=== PATIENT | female | born 1990 | race Caucasian/White ===

== ENCOUNTER 2022-08-19 19:22 | Emergency (ER) | payer MEDICAID ==
[~2022-08-19] VITALS: Ht 167.6 cm; Wt 63.6 kg
[2022-08-19 19:39] VITALS: BP 133/87
[2022-08-19] MEDS ORDERED: ONDA4TAB12 PO (20:17)
== END 2022-08-19 20:48 | disposition home or self-care (01) ==
LOC: ER 19:27
DX: A08.4 Viral intestinal infection, unspecified (principal); Z88.0 Allergy status to penicillin
CPT/HCPCS: 99283

== ENCOUNTER 2022-09-08 14:26 | Emergency (ER) | payer MEDICAID ==
[~2022-09-08] VITALS: Ht 167.6 cm; Wt 65.9 kg
[~2022-09-08 14:26] MED LIST: ONDA4TAB12 PO
[2022-09-08 14:49] VITALS: BP 131/93
--- NOTE | 2022-09-08 16:15 | NUR ---
Pt is not willing to have a full assessment completed.
[2022-09-08] MEDS ORDERED: PANT20TA18 PO (16:35)
[2022-09-08] MEDS ORDERED: mag hydrox/Alum hydrox/simeth 30ml oral suspension PO ONE (16:40)
[2022-09-08] MEDS ORDERED: pantoprazole 40mg Tablet.DR PO ONE (16:40)
== END 2022-09-08 16:53 | disposition home or self-care (01) ==
LOC: ER 14:26
DX: R10.30 Lower abdominal pain, unspecified (principal); N93.9 Abnormal uterine and vaginal bleeding, unspecified; Z88.0 Allergy status to penicillin; Z79.899 Other long term (current) drug therapy
CPT/HCPCS: 76856; 93976; 99284

== ENCOUNTER 2022-09-10 14:16 | Emergency (ER) | payer MEDICAID ==
[~2022-09-10] VITALS: Ht 167.6 cm; Wt 60.0 kg
[~2022-09-10 14:16] MED LIST changes: +PANT20TA18 PO
[2022-09-10 15:05] VITALS: BP 148/93
[2022-09-10 15:58] LABS: BASOPHILS # (AUTO) 0.1 X10'3 (0-0.2); BASOPHILS % (AUTO) 1.2 % (0-1); EOSINOPHILS # (AUTO) 0.1 X10'3 (0-0.9); EOSINOPHILS % (AUTO) 1.6 % (0-6); HEMATOCRIT 37.1 % (35.0-45.0); HEMOGLOBIN 12.3 g/dl (12.0-16.0); LYMPHOCYTES # (AUTO) 1.4 X10'3 (1.1-4.8); LYMPHOCYTES % (AUTO) 32.1 % (21-51); MEAN CORPUSCULAR HEMOGLOBIN 33.3 PG (27.0-31.0); MEAN CORPUSCULAR HGB CONC 33.2 g/dL (33.0-36.5); MEAN CORPUSCULAR VOLUME 100.5 FL (78-98); MONOCYTES # (AUTO) 0.5 X10'3 (0-0.9); MONOCYTES % (AUTO) 11.2 % (2-12); NEUTROPHILS # (AUTO) 2.4 X10'3 (1.8-7.7); NEUTROPHILS % (AUTO) 53.9 % (42-75); PLATELET COUNT 152 X10'3 (140-440); RED CELL DISTRIBUTION WIDTH 13.4 % (11.5-14.5); WHITE BLOOD COUNT 4.4 X10'3 (4.5-11.0)
[2022-09-10 16:16] LABS: ALANINE AMINOTRANSFERASE 90 U/L (12-78); ALKALINE PHOSPHATASE 104 IU/L (46-116); ANION GAP 15 (8-16); ASPARTATE AMINO TRANSFERASE 154 U/L (10-37); BILIRUBIN,TOTAL 0.6 MG/DL (0.1-1.0); BLOOD UREA NITROGEN 6 MG/DL (7-18); BUN/CREATININE RATIO 10.2 (10.0-20.0); CHLORIDE 102 MMOL/L (99-107); CREATININE 0.59 MG/DL (0.40-0.90); GLUCOSE 94 MG/DL (70-104); SODIUM 142 MMOL/L (135-145); TOTAL CARBON DIOXIDE 25.4 MMOL/L (24-32); eGFR > 90 ML/MIN
[2022-09-10 16:20] LABS: POTASSIUM 2.6 MMOL/L (3.5-5.1)
[2022-09-10] MEDS ORDERED: POTA-208 PO (16:30)
== END 2022-09-10 16:28 | disposition home or self-care (01) ==
LOC: ER 14:17
DX: R10.9 Unspecified abdominal pain (principal); E86.0 Dehydration; Z88.0 Allergy status to penicillin; Z79.899 Other long term (current) drug therapy
CPT/HCPCS: 36415; 80053; 85025; 99283

== ENCOUNTER 2022-11-25 19:02 | Emergency (ER) | payer MEDICAID ==
[~2022-11-25] VITALS: Ht 167.6 cm; Wt 63.6 kg
[~2022-11-25 19:02] MED LIST changes: +POTA-208 PO
[2022-11-25 19:07] VITALS: BP 154/112; PULSE 105; RESP 18; TEMP 98; O2SAT 97
[2022-11-25] MEDS ORDERED: HYDROcodone/acetaminophen 5mg/325mg tablet PO ONE (21:45)
[2022-11-25] MEDS ORDERED: HYDR-3965 PO (22:44)
[2022-11-25] MEDS ORDERED: ONDA4TAB12 PO (22:44)
== END 2022-11-25 22:54 | disposition home or self-care (01) ==
LOC: ER 19:03
DX: N80.9 Endometriosis, unspecified (principal); Z88.0 Allergy status to penicillin; Z79.899 Other long term (current) drug therapy
CPT/HCPCS: 76856; 93976; 99284

== ENCOUNTER 2022-11-27 18:05 | Emergency (ER) | payer MEDICAID ==
[~2022-11-27] VITALS: Ht 167.6 cm; Wt 62.8 kg
[~2022-11-27 18:05] MED LIST changes: +HYDR-3965 PO
[2022-11-27 20:02] VITALS: BP 139/100; PULSE 98; RESP 16; TEMP 98.4; O2SAT 93
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
[2022-11-27] MEDS ORDERED: CLIN-214 PO (20:19)
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
== END 2022-11-27 21:01 | disposition home or self-care (01) ==
LOC: ER 18:06
DX: S00.83XA Contusion of other part of head, initial encounter (principal); Y04.0XXA Assault by unarmed brawl or fight, initial encounter; Y93.89 Activity, other specified; Y92.89 Other specified places as the place of occurrence of the external cause; Y99.8 Other external cause status
CPT/HCPCS: 99283

== ENCOUNTER 2023-02-06 11:55 | Emergency (ER) | payer MEDICAID ==
[~2023-02-06] VITALS: Ht 167.6 cm; Wt 68.6 kg
[~2023-02-06 11:55] MED LIST changes: +CLIN-214 PO; -HYDR-3965 PO
[2023-02-06] MEDS ORDERED: LORazepam 1 MG tablet PO ONE (12:15)
[2023-02-06] MEDS ORDERED: MUPI22OI30 TOP (13:41)
[2023-02-06] MEDS ORDERED: CEPH500C2 PO (13:41)
[2023-02-06 13:53] VITALS: BP 131/86; PULSE 100; RESP 16; TEMP 98.1; O2SAT 96
== END 2023-02-06 13:56 | disposition home or self-care (01) ==
LOC: ER 11:56
DX: S80.211A Abrasion, right knee, initial encounter (principal); F41.9 Anxiety disorder, unspecified; Z88.0 Allergy status to penicillin; Z79.899 Other long term (current) drug therapy; W18.39XA Other fall on same level, initial encounter; Y93.89 Activity, other specified; Y92.89 Other specified places as the place of occurrence of the external cause; Y99.8 Other external cause status
CPT/HCPCS: 73564; 99283; 99284; A6258; A6449

== ENCOUNTER 2023-02-07 12:10 | Emergency (ER) | payer MEDICAID ==
[~2023-02-07] VITALS: Ht 167.6 cm; Wt 67.2 kg
[~2023-02-07 12:10] MED LIST changes: +CEPH500C2 PO; +MUPI22OI30 TOP
[2023-02-07] MEDS ORDERED: mupirocin 2% ointment 22GM TP STA (13:02)
[2023-02-07] MEDS ORDERED: HYDROcodone/acetaminophen 10/325mg tab PO ONE (14:10)
[2023-02-07 15:05] VITALS: BP 111/91; PULSE 96; RESP 19; TEMP 98.2; O2SAT 97
== END 2023-02-07 15:29 | disposition home or self-care (01) ==
LOC: ER 12:10
DX: S80.911D Unspecified superficial injury of right knee, subsequent encounter (principal); Z48.00 Encounter for change or removal of nonsurgical wound dressing; W19.XXXD Unspecified fall, subsequent encounter
CPT/HCPCS: 99284; A6258

== ENCOUNTER 2023-02-19 23:59 | Inpatient (IN) | payer MEDICAID ==
[~2023-02-19] VITALS: Ht 167.6 cm; Wt 73.6 kg
[~2023-02-19 23:59] MED LIST changes: -CEPH500C2 PO; -MUPI22OI30 TOP
[2023-02-20] VITALS (22 sets, daily range): BP systolic 70–106; BP diastolic 42–69; PULSE 122–140; RESP 13–32; O2SAT 87–100
[2023-02-20] MEDS ORDERED: normal saline 1000ML IV soln IV ONE (00:10)
[2023-02-20] MEDS ORDERED: LORazepam 2 mg/ml vial IV ONE (00:10)
[2023-02-20] MEDS ORDERED: thiamine 100mg/ml 2ml inj. IV ONE (00:10)
[2023-02-20 00:55] LABS: BASOPHILS % (AUTO) 0.3 % (0-1); EOSINOPHILS % (AUTO) 0 % (0-6); HEMATOCRIT 42.3 % (35.0-45.0); HEMOGLOBIN 13.4 g/dl (12.0-16.0); LYMPHOCYTES # (AUTO) 0.4 X10'3 (1.1-4.8); LYMPHOCYTES % (AUTO) 3.4 % (21-51); MEAN CORPUSCULAR HEMOGLOBIN 31.1 PG (27.0-31.0); MEAN CORPUSCULAR HGB CONC 31.8 g/dL (33.0-36.5); MEAN CORPUSCULAR VOLUME 97.7 FL (78-98); MEAN PLATELET VOLUME 8.5 FL (7.4-10.4); MONOCYTES # (AUTO) 1.4 X10'3 (0-0.9); MONOCYTES % (AUTO) 12.2 % (2-12); NEUTROPHILS # (AUTO) 9.5 X10'3 (1.8-7.7); NEUTROPHILS % (AUTO) 84.1 % (42-75); PLATELET COUNT 117 X10'3 (140-440); RED BLOOD COUNT 4.33 X10'6 (4.20-5.60); RED CELL DISTRIBUTION WIDTH 17.3 % (11.5-14.5); WHITE BLOOD COUNT 11.3 X10'3 (4.5-11.0)
[2023-02-20 01:15] LABS: ALANINE AMINOTRANSFERASE 168 U/L (12-78); ALBUMIN/GLOBULIN RATIO 1.1 (1.1-1.5); ALKALINE PHOSPHATASE 126 IU/L (46-116); ANION GAP 38 (8-16); ASPARTATE AMINO TRANSFERASE 252 U/L (10-37); BILIRUBIN,TOTAL 3.5 MG/DL (0.1-1.0); BLOOD UREA NITROGEN 7 MG/DL (7-18); CALCIUM 8.9 MG/DL (8.5-10.1); CHLORIDE 87 MMOL/L (99-107); CREATININE 3.46 MG/DL (0.40-0.90); ETHANOL < 10 MG/DL (<10); GLUCOSE 114 MG/DL (70-104); MAGNESIUM 1.9 MG/DL (1.5-2.4); SODIUM 134 MMOL/L (135-145); TOTAL PROTEIN 9.7 G/DL (6.4-8.2); eCRCL 22 ML/MIN; eGFR 15 ML/MIN
[2023-02-20 01:19] LABS: LIPASE > 375 U/L (16-77); POTASSIUM 3.2 MMOL/L (3.5-5.1)
[2023-02-20 01:25] LABS: TOTAL CARBON DIOXIDE 9.3 MMOL/L (24-32)
[2023-02-20] MEDS ORDERED: CefTRIAXone/D5W-Rocephin 1gm 50 ML IV STA (01:27)
[2023-02-20] MEDS ORDERED: normal saline 1000ML IV soln IVB ONE (01:35)
[2023-02-20] MEDS ORDERED: LIDOcaine 2% 10ml TOPICAL JELLY (Urojet) TP ONE (02:05)
[2023-02-20] MEDS ORDERED: LidoCAINE 2% Topical Jelly 11mL syringe TOP ONE (02:15)
[2023-02-20 02:25] LABS: URINE HCG NEGATIVE (NEG)
[2023-02-20 02:26] LABS: BILIRUBIN,URINE SMALL (Neg); CLARITY,URINE CLEAR (Clear); COLOR,URINE YELLOW (Yellow); GLUCOSE, URINE NEGATIVE (Neg); KETONES,URINE 40 mg/dl (Neg); LEUKOCYTE ESTERASE ,URINE NEGATIVE (Neg); NITRITES, URINE NEGATIVE (Neg); OCCULT BLOOD,URINE SMALL (Neg); PROTEIN,URINE 100 mg/dl (Neg); UROBILINOGEN,URINE 0.2 E.U/dL (0.2-1.0)
[2023-02-20 02:44] LABS: UA COLLECTION TYPE OTHER
[2023-02-20 02:45] LABS: HYALINE CASTS >30 /LPF (NEGATIVE); SQUAMOUS EPITHELIAL CELL,UR MODERATE /LPF (FEW)
[2023-02-20] MEDS ORDERED: haloperidol lactate 5mg/ml inj IM PRN (02:45)
[2023-02-20] MEDS ORDERED: LORazepam 2 mg/ml vial IV PRN (02:45)
[2023-02-20] MEDS ORDERED: ondansetron/PF 4mg/2ml inj IV PRN (02:45)
[2023-02-20] MEDS ORDERED: dextrose 50%-water 50ml dispensing syringe IV PRN ×3 (02:45→16:25)
[2023-02-20 02:46] LABS: BACTERIA,URINE 2+ /HPF (Neg); WBC,URINE 0-4 /HPF (0-4)
[2023-02-20 02:49] LABS: URINE AMPHETAMINE SCREEN NEGATIVE (Neg); URINE BARBITUATE SCREEN NEGATIVE (Neg); URINE BENZODIAZEPINES SCREEN POSITIVE (Neg); URINE CANNABINOID SCREEN NEGATIVE (Neg); URINE COCAINE SCREEN NEGATIVE (Neg); URINE METHADONE SCREEN NEGATIVE (Neg); URINE OPIATE SCREEN NEGATIVE (Neg); URINE PHENCYCLIDINE SCREEN NEGATIVE (Neg)
[2023-02-20] MEDS ORDERED: sodium bicarbonate 1meq/ml inj 150 ML in dextrose 5%-water 1,000 ML IV ONE (02:50)
[2023-02-20] MEDS ORDERED: ondansetron/PF 4mg/2ml inj IM ONE (03:00)
[2023-02-20] MEDS ORDERED: HYDROmorphone 1 mg/ml syringe IV ONE (03:05)
[2023-02-20] MEDS: HYDROmorphone 1 mg/ml syringe IV PRN ×4 (03:10→20:39)
[2023-02-20 07:52] LABS: ALBUMIN 3.7 G/DL (3.4-5.0); ANION GAP 25 (8-16); BLOOD UREA NITROGEN 9 MG/DL (7-18); BUN/CREATININE RATIO 2.8 (10.0-20.0); CALCIUM 7.3 MG/DL (8.5-10.1); CHLORIDE 93 MMOL/L (99-107); CREATININE 3.22 MG/DL (0.40-0.90); GLUCOSE 209 MG/DL (70-104); POTASSIUM 3.3 MMOL/L (3.5-5.1); SODIUM 135 MMOL/L (135-145); TOTAL CARBON DIOXIDE 16.9 MMOL/L (24-32); eCRCL 23 ML/MIN; eGFR 17 ML/MIN
[2023-02-20] MEDS: pantoprazole 40 MG vial IV SCH ×2 (07:58→20:27)
[2023-02-20] MEDS: heparin, porcine 5000 units/ml vial SQ SCH ×2 (07:59→20:28)
[2023-02-20] MEDS: thiamine 100mg/ml 2ml inj. IV SCH ×3 (07:59→20:43)
[2023-02-20] MEDS: folic acid 1mg/0.2ml inj IV SCH (08:15)
[2023-02-20] MEDS: ringers solution, lacted 1,000 ML IV SCH ×4 (09:15→20:39)
[2023-02-20] MEDS ORDERED: potassium Cl 20 mEq SR tablet PO PRN ×2 (10:35)
[2023-02-20] MEDS ORDERED: magnesium 2GM in 50ml NS 50 ML IV PRN (10:35)
[2023-02-20] MEDS ORDERED: potassium Cl 40MEQ/1/2NS 520ml 520 ML IV PRN (10:35)
[2023-02-20] MEDS ORDERED: Potassium Cl inj 20 MEQ in normal saline 250ml IV soln 250 ML IV ONE (12:00)
[2023-02-20] MEDS: ondansetron/PF 4mg/2ml inj IV PRN ×2 (12:04→18:25)
[2023-02-20 13:33] LABS: ABG BASE EXCESS -6.5 mmol/L (-2.0-2.0); ABG HCO3 18.1 mmol/L (22.0-26.0); ABG OXYGEN SATURATION 88.8 % (94-97); ABG PCO2 (T) 34.7 mmHg (32.0-45.0); ABG PO2 (T) 60.7 mmHg (75.0-100.0); ALLEN'S TEST POSITIVE; FHHb 11.2 % (0.0-5.0); FMetHb 0.3 % (0.0-1.5); FO2Hb 88.5 % (94-97); MODE ROOM AIR; PATIENT TEMPERATURE 38.1; TOTAL HEMOGLOBIN 11.3 G/dl (12.0-16.0)
[2023-02-20] MEDS: proCHLORperazine 10 MG/2 ml inj IV PRN (14:09)
[2023-02-20] MEDS ORDERED: ringers solution, lacted 1,000 ML IV ONE ×3 (15:00→19:00)
[2023-02-20] MEDS ORDERED: glucagon, human recombinant 1mg kit SUBCUT PRN (16:25)
[2023-02-20 20:15] LABS: ALANINE AMINOTRANSFERASE 112 U/L (12-78); ALBUMIN 2.5 G/DL (3.4-5.0); ALBUMIN/GLOBULIN RATIO 0.9 (1.1-1.5); ALKALINE PHOSPHATASE 51 IU/L (46-116); ANION GAP 16 (8-16); ASPARTATE AMINO TRANSFERASE 261 U/L (10-37); BILIRUBIN,TOTAL 2.6 MG/DL (0.1-1.0); BLOOD UREA NITROGEN 14 MG/DL (7-18); BUN/CREATININE RATIO 3.4 (10.0-20.0); CALCIUM 6.9 MG/DL (8.5-10.1); CHLORIDE 96 MMOL/L (99-107); CREATININE 4.12 MG/DL (0.40-0.90); GLUCOSE 165 MG/DL (70-104); SODIUM 134 MMOL/L (135-145); TOTAL CARBON DIOXIDE 21.8 MMOL/L (24-32); TOTAL PROTEIN 5.2 G/DL (6.4-8.2); eCRCL 18 ML/MIN; eGFR 12 ML/MIN
[2023-02-20 20:18] LABS: POTASSIUM 2.6 MMOL/L (3.5-5.1)
[2023-02-20 20:19] LABS: MAGNESIUM 0.5 MG/DL (1.5-2.4)
[2023-02-20] MEDS: magnesium 4gm in 100ml NS 100 ML IV PRN (20:22)
[2023-02-20 20:29] LABS: EOSINOPHILS % (AUTO) 0 % (0-6); HEMOGLOBIN 9.7 g/dl (12.0-16.0); LYMPHOCYTES # (AUTO) 0.6 X10'3 (1.1-4.8); LYMPHOCYTES % (AUTO) 10.1 % (21-51); MEAN CORPUSCULAR HGB CONC 33.6 g/dL (33.0-36.5); MONOCYTES # (AUTO) 0.6 X10'3 (0-0.9); NEUTROPHILS # (AUTO) 4.7 X10'3 (1.8-7.7)
[2023-02-20 20:30] LABS: BASOPHILS % (AUTO) 0.3 % (0-1); HEMATOCRIT 28.8 % (35.0-45.0); MEAN CORPUSCULAR HEMOGLOBIN 31.5 PG (27.0-31.0); MEAN CORPUSCULAR VOLUME 93.7 FL (78-98); MEAN PLATELET VOLUME 9.4 FL (7.4-10.4); MONOCYTES % (AUTO) 9.6 % (2-12); RED BLOOD COUNT 3.08 X10'6 (4.20-5.60); RED CELL DISTRIBUTION WIDTH 17.2 % (11.5-14.5); WHITE BLOOD COUNT 5.8 X10'3 (4.5-11.0)
[2023-02-20] MEDS: potassium Cl 40MEQ/270ML bag 270 ML IV PRN ×2 (20:33→22:31)
[2023-02-20] MEDS: NORepinephrine 8mg/ 250ml NS 250 ML IV SCH (20:37)
[2023-02-20 20:48] LABS: PLATELET COUNT 45 X10'3 (140-440)
[2023-02-20] MEDS: insulin Lispro (HumaLOG) vial - multi-dose SQ SCH (21:02)
[2023-02-20] MEDS: insulin glargine (Lantus) pen - multi-dose SQ SCH (21:05)
[2023-02-21] VITALS (24 sets, daily range): BP systolic 83–120; BP diastolic 50–77; PULSE 96–134; RESP 12–22; O2SAT 92–97
[2023-02-21] MEDS ORDERED: albumin (Human) 5% 250ml 500 ML IV ONE (00:31)
[2023-02-21] MEDS ORDERED: albumin (Human) 5% 250ml 250 ML IV ONE ×4 (00:35→04:30)
[2023-02-21] MEDS: hydrocortisone sod succ/PF 100mg/2ml inj. IV SCH ×3 (00:51→16:06)
[2023-02-21] MEDS: vasopressin inj. 40 UNIT in normal saline 50ml IV soln 38 ML IV SCH ×2 (01:22→08:26)
[2023-02-21 01:48] LABS: ALANINE AMINOTRANSFERASE 124 U/L (12-78); ALBUMIN/GLOBULIN RATIO 1.1 (1.1-1.5); ALKALINE PHOSPHATASE 55 IU/L (46-116); ANION GAP 14 (8-16); ASPARTATE AMINO TRANSFERASE 267 U/L (10-37); BILIRUBIN,TOTAL 3.1 MG/DL (0.1-1.0); BLOOD UREA NITROGEN 12 MG/DL (7-18); CALCIUM 7.4 MG/DL (8.5-10.1); CHLORIDE 98 MMOL/L (99-107); CREATININE 4.05 MG/DL (0.40-0.90); GLUCOSE 105 MG/DL (70-104); POTASSIUM 4.2 MMOL/L (3.5-5.1); SODIUM 131 MMOL/L (135-145); TOTAL CARBON DIOXIDE 18.6 MMOL/L (24-32); TOTAL PROTEIN 5.7 G/DL (6.4-8.2); eCRCL 19 ML/MIN; eGFR 13 ML/MIN
[2023-02-21] MEDS: HYDROmorphone 1 mg/ml syringe IV PRN ×4 (01:49→20:42)
[2023-02-21 01:50] LABS: APTT 43 SECONDS (22-32); PHOSPHORUS 0.2 MG/DL (2.3-4.5)
[2023-02-21 02:00] LABS: BASOPHILS % (AUTO) 0.1 % (0-1); EOSINOPHILS % (AUTO) 0 % (0-6); HEMATOCRIT 31.3 % (35.0-45.0); HEMOGLOBIN 10.3 g/dl (12.0-16.0); LYMPHOCYTES # (AUTO) 0.8 X10'3 (1.1-4.8); LYMPHOCYTES % (AUTO) 6.8 % (21-51); MEAN CORPUSCULAR HEMOGLOBIN 31.1 PG (27.0-31.0); MEAN CORPUSCULAR HGB CONC 32.9 g/dL (33.0-36.5); MEAN CORPUSCULAR VOLUME 94.5 FL (78-98); MEAN PLATELET VOLUME 9.6 FL (7.4-10.4); MONOCYTES # (AUTO) 1.2 X10'3 (0-0.9); MONOCYTES % (AUTO) 9.8 % (2-12); NEUTROPHILS # (AUTO) 9.9 X10'3 (1.8-7.7); NEUTROPHILS % (AUTO) 83.3 % (42-75); PLATELET COUNT 76 X10'3 (140-440); RED BLOOD COUNT 3.31 X10'6 (4.20-5.60); RED CELL DISTRIBUTION WIDTH 17.6 % (11.5-14.5); WHITE BLOOD COUNT 11.9 X10'3 (4.5-11.0)
[2023-02-21 02:03] LABS: MAGNESIUM 2.1 MG/DL (1.5-2.4)
[2023-02-21] MEDS: proCHLORperazine 10 MG/2 ml inj IV PRN (02:09)
[2023-02-21] MEDS ORDERED: sodium phosphate inj. 15 MMOL in dextrose 5%-water 250 ML IV PRN (02:10)
[2023-02-21] MEDS ORDERED: sodium phosphate inj. 30 MMOL in dextrose 5%-water 250 ML IV PRN (02:10)
[2023-02-21] MEDS: ringers solution, lacted 1,000 ML IV SCH ×3 (02:48→10:16)
[2023-02-21] MEDS ORDERED: albumin (human) 25% 100ml IV 100 ML in dextrose 5% water 500ml 400 ML IV ONE (03:15)
[2023-02-21 03:21] LABS: APTT 43 SECONDS (22-32)
[2023-02-21 03:38] LABS: ANISOCYTOSIS 1+; PLATELET ESTIMATE DECREASED; TOTAL CELLS COUNTED 100
[2023-02-21 03:41] LABS: LARGE PLATELETS FEW
[2023-02-21] MEDS: NORepinephrine 8mg/ 250ml NS 250 ML IV SCH ×3 (04:14→16:06)
[2023-02-21] MEDS: K and/or MAG REPLACEMENT MC SCH (08:00)
[2023-02-21] MEDS: thiamine 100mg/ml 2ml inj. IV SCH ×3 (08:25→20:47)
[2023-02-21] MEDS: pantoprazole 40 MG vial IV SCH ×2 (08:25→20:47)
[2023-02-21] MEDS: folic acid 1mg/0.2ml inj IV SCH (08:25)
[2023-02-21 09:37] LABS: BASOPHILS % (AUTO) 0.2 % (0-1); EOSINOPHILS % (AUTO) 0 % (0-6); HEMATOCRIT 29.5 % (35.0-45.0); HEMOGLOBIN 9.8 g/dl (12.0-16.0); LYMPHOCYTES # (AUTO) 0.5 X10'3 (1.1-4.8); LYMPHOCYTES % (AUTO) 4.8 % (21-51); MEAN CORPUSCULAR HEMOGLOBIN 31.4 PG (27.0-31.0); MEAN CORPUSCULAR HGB CONC 33.3 g/dL (33.0-36.5); MEAN CORPUSCULAR VOLUME 94.5 FL (78-98); MEAN PLATELET VOLUME 9.4 FL (7.4-10.4); MONOCYTES # (AUTO) 0.7 X10'3 (0-0.9); MONOCYTES % (AUTO) 6.6 % (2-12); NEUTROPHILS # (AUTO) 9.1 X10'3 (1.8-7.7); NEUTROPHILS % (AUTO) 88.4 % (42-75); PLATELET COUNT 71 X10'3 (140-440); RED BLOOD COUNT 3.12 X10'6 (4.20-5.60); RED CELL DISTRIBUTION WIDTH 18.2 % (11.5-14.5); WHITE BLOOD COUNT 10.4 X10'3 (4.5-11.0)
[2023-02-21 09:55] LABS: ALANINE AMINOTRANSFERASE 110 U/L (12-78); ALBUMIN 3.6 G/DL (3.4-5.0); ALBUMIN/GLOBULIN RATIO 1.5 (1.1-1.5); ALKALINE PHOSPHATASE 55 IU/L (46-116); ANION GAP 19 (8-16); ASPARTATE AMINO TRANSFERASE 223 U/L (10-37); BILIRUBIN,TOTAL 3.5 MG/DL (0.1-1.0); BLOOD UREA NITROGEN 12 MG/DL (7-18); BUN/CREATININE RATIO 3.3 (10.0-20.0); CHLORIDE 98 MMOL/L (99-107); CREATININE 3.68 MG/DL (0.40-0.90); GLUCOSE 130 MG/DL (70-104); MAGNESIUM 2.5 MG/DL (1.5-2.4); PHOSPHORUS 2.3 MG/DL (2.3-4.5); SODIUM 133 MMOL/L (135-145); eCRCL 20 ML/MIN; eGFR 14 ML/MIN
[2023-02-21 09:57] LABS: POTASSIUM 4.2 MMOL/L (3.5-5.1)
[2023-02-21 10:09] LABS: ANISOCYTOSIS 2+; PLATELET ESTIMATE DECREASED; TOTAL CELLS COUNTED 100
[2023-02-21 12:37] LABS: HEMOGLOBIN A1C 4.5 % (4.5-6.2)
[2023-02-21] MEDS: insulin Lispro (HumaLOG) vial - multi-dose SQ SCH ×2 (14:59→21:04)
[2023-02-21] MEDS ORDERED: NO HOME MEDS (17:46)
[2023-02-21] MEDS: insulin glargine (Lantus) pen - multi-dose SQ SCH (21:05)
[2023-02-22] VITALS (20 sets, daily range): BP systolic 98–130; BP diastolic 65–95; PULSE 100–113; RESP 11–17; TEMP 97.9–99.3; O2SAT 92–99
[2023-02-22] MEDS: hydrocortisone sod succ/PF 100mg/2ml inj. IV SCH (00:18)
[2023-02-22] MEDS: ondansetron/PF 4mg/2ml inj IV PRN ×2 (00:21→12:54)
[2023-02-22] MEDS ORDERED: LORazepam 1 MG tablet PO PRN (02:45)
[2023-02-22] MEDS ORDERED: LORazepam 2 mg/ml vial IV PRN (02:45)
[2023-02-22 02:50] LABS: HEMOGLOBIN 8.6 g/dl (12.0-16.0); LYMPHOCYTES # (AUTO) 0.3 X10'3 (1.1-4.8); MONOCYTES # (AUTO) 0.6 X10'3 (0-0.9); MONOCYTES % (AUTO) 11.6 % (2-12)
[2023-02-22 02:52] LABS: BASOPHILS % (AUTO) 0.1 % (0-1); EOSINOPHILS % (AUTO) 0.9 % (0-6); HEMATOCRIT 26.1 % (35.0-45.0); LYMPHOCYTES % (AUTO) 6.6 % (21-51); MEAN CORPUSCULAR HEMOGLOBIN 31.6 PG (27.0-31.0); MEAN CORPUSCULAR HGB CONC 33.1 g/dL (33.0-36.5); MEAN CORPUSCULAR VOLUME 95.7 FL (78-98); MEAN PLATELET VOLUME 9.3 FL (7.4-10.4); NEUTROPHILS # (AUTO) 4.2 X10'3 (1.8-7.7); NEUTROPHILS % (AUTO) 80.8 % (42-75); RED BLOOD COUNT 2.73 X10'6 (4.20-5.60); RED CELL DISTRIBUTION WIDTH 18.9 % (11.5-14.5); WHITE BLOOD COUNT 5.2 X10'3 (4.5-11.0)
[2023-02-22] MEDS: HYDROmorphone 1 mg/ml syringe IV PRN ×3 (03:02→17:31)
[2023-02-22] MEDS: ringers solution, lacted 1,000 ML IV SCH ×4 (03:03→22:57)
[2023-02-22 03:07] LABS: ALANINE AMINOTRANSFERASE 103 U/L (12-78); ALBUMIN 3.1 G/DL (3.4-5.0); ALBUMIN/GLOBULIN RATIO 1.2 (1.1-1.5); ALKALINE PHOSPHATASE 59 IU/L (46-116); ANION GAP 17 (8-16); ASPARTATE AMINO TRANSFERASE 191 U/L (10-37); BILIRUBIN,TOTAL 3.4 MG/DL (0.1-1.0); BLOOD UREA NITROGEN 21 MG/DL (7-18); BUN/CREATININE RATIO 5.7 (10.0-20.0); CALCIUM 6.3 MG/DL (8.5-10.1); CHLORIDE 99 MMOL/L (99-107); GLUCOSE 160 MG/DL (70-104); MAGNESIUM 2.3 MG/DL (1.5-2.4); PHOSPHORUS 2.3 MG/DL (2.3-4.5); SODIUM 137 MMOL/L (135-145); TOTAL CARBON DIOXIDE 21.5 MMOL/L (24-32); TOTAL PROTEIN 5.7 G/DL (6.4-8.2); eCRCL 20 ML/MIN; eGFR 14 ML/MIN
[2023-02-22 03:15] LABS: PLATELET COUNT 45 X10'3 (140-440)
[2023-02-22] MEDS: potassium Cl 40MEQ/270ML bag 270 ML IV PRN ×2 (03:24→09:40)
[2023-02-22] MEDS: K and/or MAG REPLACEMENT MC SCH (08:00)
[2023-02-22 08:13] LABS: ANISOCYTOSIS 2+; PLATELET ESTIMATE DECREASED; TOTAL CELLS COUNTED 100
[2023-02-22] MEDS: thiamine 100mg/ml 2ml inj. IV SCH ×3 (08:37→20:46)
[2023-02-22] MEDS: pantoprazole 40 MG vial IV SCH ×2 (08:38→20:46)
[2023-02-22] MEDS: haloperidol 5mg tablet PO PRN (09:34)
[2023-02-22] MEDS: folic acid 1mg/0.2ml inj IV SCH (09:39)
[2023-02-22] MEDS: insulin Lispro (HumaLOG) vial - multi-dose SQ SCH (09:39)
[2023-02-22] MEDS ORDERED: potassium chloride 10mEq ER tablet PO STA (13:41)
[2023-02-22] MEDS: proCHLORperazine 10 MG/2 ml inj IV PRN (20:51)
[2023-02-22] MEDS ORDERED: pantoprazole 40mg Tablet.DR PO SCH (23:30)
[2023-02-23 06:00] VITALS: BP 132/99; PULSE 116; RESP 16; TEMP 98.9; O2SAT 97
[2023-02-23 06:02] LABS: BASOPHILS % (AUTO) 0.1 % (0-1); EOSINOPHILS # (AUTO) 0.1 X10'3 (0-0.9); EOSINOPHILS % (AUTO) 1.5 % (0-6); HEMATOCRIT 27.8 % (35.0-45.0); HEMOGLOBIN 9.3 g/dl (12.0-16.0); LYMPHOCYTES # (AUTO) 0.6 X10'3 (1.1-4.8); LYMPHOCYTES % (AUTO) 13.4 % (21-51); MEAN CORPUSCULAR HEMOGLOBIN 31.6 PG (27.0-31.0); MEAN CORPUSCULAR HGB CONC 33.4 g/dL (33.0-36.5); MEAN CORPUSCULAR VOLUME 94.4 FL (78-98); MEAN PLATELET VOLUME 9.2 FL (7.4-10.4); MONOCYTES # (AUTO) 0.8 X10'3 (0-0.9); MONOCYTES % (AUTO) 18.8 % (2-12); NEUTROPHILS # (AUTO) 2.7 X10'3 (1.8-7.7); NEUTROPHILS % (AUTO) 66.2 % (42-75); PLATELET COUNT 61 X10'3 (140-440); RED BLOOD COUNT 2.95 X10'6 (4.20-5.60); RED CELL DISTRIBUTION WIDTH 18.4 % (11.5-14.5); WHITE BLOOD COUNT 4.1 X10'3 (4.5-11.0)
[2023-02-23 06:29] LABS: ALANINE AMINOTRANSFERASE 107 U/L (12-78); ALBUMIN 3.3 G/DL (3.4-5.0); ALKALINE PHOSPHATASE 124 IU/L (46-116); ANION GAP 14 (8-16); ASPARTATE AMINO TRANSFERASE 178 U/L (10-37); BILIRUBIN,TOTAL 4.8 MG/DL (0.1-1.0); BLOOD UREA NITROGEN 36 MG/DL (7-18); BUN/CREATININE RATIO 11.6 (10.0-20.0); CALCIUM 7.7 MG/DL (8.5-10.1); CHLORIDE 102 MMOL/L (99-107); CREATININE 3.11 MG/DL (0.40-0.90); GLUCOSE 107 MG/DL (70-104); MAGNESIUM 2.3 MG/DL (1.5-2.4); SODIUM 138 MMOL/L (135-145); TOTAL CARBON DIOXIDE 22.1 MMOL/L (24-32); eCRCL 24 ML/MIN; eGFR 17 ML/MIN
[2023-02-23] MEDS: ringers solution, lacted 1,000 ML IV SCH ×4 (06:30→19:00)
[2023-02-23 06:33] LABS: ALBUMIN/GLOBULIN RATIO 0.9 (1.1-1.5)
[2023-02-23 06:36] LABS: PHOSPHORUS 0.3 MG/DL (2.3-4.5)
[2023-02-23 07:15] LABS: ANISOCYTOSIS 2+; NUCLEATED RED BLOOD CELLS 1 /100WBC (0-0); PLATELET ESTIMATE DECREASED; TOTAL CELLS COUNTED 100
[2023-02-23 07:16] LABS: POLYCHROMASIA FEW
[2023-02-23] MEDS ORDERED: potassium phosphate inj 30 MMOL in normal saline 250ml IV soln 250 ML IV ONE (07:35)
[2023-02-23 08:00] VITALS: RESP 15; O2SAT 98
[2023-02-23] MEDS: K and/or MAG REPLACEMENT MC SCH (08:29)
[2023-02-23] MEDS: pantoprazole 40 MG vial IV SCH ×2 (08:30→19:16)
[2023-02-23] MEDS ORDERED: mag hydrox/Alum hydrox/simeth 30ml oral suspension PO PRN (08:55)
[2023-02-23] MEDS ORDERED: haloperidol lactate 5mg/ml inj IM PRN (08:55)
[2023-02-23] MEDS ORDERED: haloperidol 5mg tablet PO PRN (08:55)
[2023-02-23] MEDS: haloperidol 5mg tablet PO PRN (09:05)
[2023-02-23 09:31] LABS: INR 1.3 INR; PROTHROMBIN TIME 14.1 SECONDS (9.0-12.0)
[2023-02-23] MEDS: folic acid 1mg/0.2ml inj IV SCH (10:52)
[2023-02-23 11:00] VITALS: BP 160/109; PULSE 120; RESP 16; TEMP 99.1; O2SAT 96
[2023-02-23] MEDS ORDERED: POTASSIUM BICARB 20meq eff tab 20 MEQ TABLET.EFF PO PRN (14:40)
[2023-02-23] MEDS: thiamine 100mg/ml 2ml inj. IV SCH ×2 (15:23→21:33)
[2023-02-23] MEDS: POTASSIUM BICARB 20meq eff tab 20 MEQ TABLET.EFF PO PRN ×2 (15:24→19:07)
[2023-02-23 18:00] VITALS: BP 127/95; PULSE 105; RESP 14; TEMP 98.8; O2SAT 100
[2023-02-23] MEDS: LORazepam 2 mg/ml vial IV PRN ×2 (19:08→23:24)
[2023-02-23 20:00] VITALS: RESP 14; O2SAT 100
[2023-02-23 22:00] VITALS: BP 135/93; PULSE 112; RESP 18; TEMP 98.2; O2SAT 98
[2023-02-24] MEDS: ondansetron/PF 4mg/2ml inj IV PRN (00:12)
[2023-02-24] MEDS: LORazepam 2 mg/ml vial IV PRN ×2 (01:47→05:25)
[2023-02-24] MEDS: ringers solution, lacted 1,000 ML IV SCH ×3 (02:44→21:13)
[2023-02-24] MEDS ORDERED: LORazepam 1 MG tablet PO PRN (02:45)
[2023-02-24] MEDS ORDERED: LORazepam 2 mg/ml vial IV PRN (02:45)
[2023-02-24 06:00] VITALS: BP 135/90; PULSE 109; RESP 16; TEMP 98.3; O2SAT 97
[2023-02-24 08:30] VITALS: RESP 16; O2SAT 97
[2023-02-24 08:47] LABS: INR 1.4 INR; PROTHROMBIN TIME 15.2 SECONDS (9.0-12.0)
[2023-02-24 09:13] LABS: % IRON SATURATION 11 % (11-46); IRON 17 UG/DL (49-151); TOTAL IRON BINDING CAPACITY 155 UG/DL (259-388)
[2023-02-24 09:34] LABS: ALANINE AMINOTRANSFERASE 82 U/L (12-78); ALBUMIN 2.5 G/DL (3.4-5.0); ALKALINE PHOSPHATASE 201 IU/L (46-116); AMYLASE 57 U/L (25-115); ANION GAP 10 (8-16); ASPARTATE AMINO TRANSFERASE 153 U/L (10-37); BILIRUBIN,TOTAL 4.5 MG/DL (0.1-1.0); BLOOD UREA NITROGEN 20 MG/DL (7-18); BUN/CREATININE RATIO 14.9 (10.0-20.0); CALCIUM 7.9 MG/DL (8.5-10.1); CHLORIDE 104 MMOL/L (99-107); CREATININE 1.34 MG/DL (0.40-0.90); GLUCOSE 117 MG/DL (70-104); LIPASE 96 U/L (16-77); MAGNESIUM 1.4 MG/DL (1.5-2.4); SODIUM 142 MMOL/L (135-145); TOTAL CARBON DIOXIDE 27.6 MMOL/L (24-32); eCRCL 56 ML/MIN; eGFR 46 ML/MIN
[2023-02-24 09:35] LABS: ALBUMIN/GLOBULIN RATIO 0.9 (1.1-1.5); TOTAL PROTEIN 5.4 G/DL (6.4-8.2)
[2023-02-24 09:41] LABS: PHOSPHORUS 0.8 MG/DL (2.3-4.5); POTASSIUM 2.6 MMOL/L (3.5-5.1)
[2023-02-24 10:00] VITALS: BP 130/98; PULSE 95; RESP 18; TEMP 98.3; O2SAT 97
[2023-02-24] MEDS: magnesium 4gm in 100ml NS 100 ML IV PRN (10:00)
[2023-02-24] MEDS: POTASSIUM BICARB 20meq eff tab 20 MEQ TABLET.EFF PO PRN ×2 (10:03→14:58)
[2023-02-24] MEDS: thiamine 100mg/ml 2ml inj. IV SCH ×3 (10:04→20:53)
[2023-02-24] MEDS: multivitamins, therapeutics tablet PO SCH (10:10)
[2023-02-24] MEDS: pantoprazole 40 MG vial IV SCH ×2 (10:10→20:50)
[2023-02-24] MEDS ORDERED: sodium phosphate inj. 15 MMOL in dextrose 5%-water 250 ML IV PRN (12:55)
[2023-02-24] MEDS ORDERED: sodium phosphate inj. 30 MMOL in dextrose 5%-water 250 ML IV PRN (12:55)
[2023-02-24] MEDS ORDERED: potassium Cl 40MEQ/1/2NS 520ml 520 ML IV PRN (14:30)
[2023-02-24] MEDS: folic acid 1mg/0.2ml inj IV SCH (14:39)
[2023-02-24] MEDS: Neutra Phos packet PO PRN ×3 (14:40→20:50)
[2023-02-24 18:00] VITALS: BP 116/81; PULSE 98; RESP 14; TEMP 98.8; O2SAT 96
[2023-02-24 19:19] LABS: EOSINOPHILS # (AUTO) 0.1 X10'3 (0-0.9); LYMPHOCYTES # (AUTO) 0.6 X10'3 (1.1-4.8); LYMPHOCYTES % (AUTO) 11.7 % (21-51); MONOCYTES # (AUTO) 1.7 X10'3 (0-0.9); NEUTROPHILS # (AUTO) 2.5 X10'3 (1.8-7.7); PLATELET COUNT 62 X10'3 (140-440); WHITE BLOOD COUNT 4.8 X10'3 (4.5-11.0)
[2023-02-24 19:21] LABS: BASOPHILS % (AUTO) 0.2 % (0-1); EOSINOPHILS % (AUTO) 1.6 % (0-6); HEMATOCRIT 28.2 % (35.0-45.0); HEMOGLOBIN 9.5 g/dl (12.0-16.0); MEAN CORPUSCULAR HEMOGLOBIN 31.5 PG (27.0-31.0); MEAN CORPUSCULAR HGB CONC 33.7 g/dL (33.0-36.5); MEAN CORPUSCULAR VOLUME 93.3 FL (78-98); MONOCYTES % (AUTO) 35.1 % (2-12); NEUTROPHILS % (AUTO) 51.4 % (42-75); RED BLOOD COUNT 3.02 X10'6 (4.20-5.60); RED CELL DISTRIBUTION WIDTH 18.5 % (11.5-14.5)
[2023-02-24 20:00] VITALS: RESP 18
[2023-02-24] MEDS: ferrous sulfate 300mg/5ml UD oral liquid PO SCH (20:50)
[2023-02-24 22:00] VITALS: BP 138/93; PULSE 91; RESP 15; TEMP 97.1; O2SAT 96
[2023-02-25 00:06] LABS: NUCLEATED RED BLOOD CELLS 1 /100WBC (0-0); TOTAL CELLS COUNTED 100
[2023-02-25 00:08] LABS: ANISOCYTOSIS 2+; PLATELET ESTIMATE DECREASED; POLYCHROMASIA FEW
[2023-02-25 00:10] LABS: TARGET CELLS FEW
[2023-02-25] MEDS: ondansetron/PF 4mg/2ml inj IV PRN (00:28)
[2023-02-25 06:00] VITALS: BP 146/101; PULSE 90; RESP 16; TEMP 100.1; O2SAT 96
[2023-02-25 07:16] LABS: BASOPHILS % (AUTO) 0.1 % (0-1); EOSINOPHILS # (AUTO) 0.1 X10'3 (0-0.9); EOSINOPHILS % (AUTO) 1.1 % (0-6); HEMOGLOBIN 9.4 g/dl (12.0-16.0); LYMPHOCYTES # (AUTO) 0.6 X10'3 (1.1-4.8); LYMPHOCYTES % (AUTO) 12.7 % (21-51); MEAN CORPUSCULAR HEMOGLOBIN 31.2 PG (27.0-31.0); MEAN CORPUSCULAR HGB CONC 33.4 g/dL (33.0-36.5); MEAN CORPUSCULAR VOLUME 93.5 FL (78-98); MONOCYTES # (AUTO) 1.4 X10'3 (0-0.9); MONOCYTES % (AUTO) 28.9 % (2-12); NEUTROPHILS # (AUTO) 2.9 X10'3 (1.8-7.7); NEUTROPHILS % (AUTO) 57.2 % (42-75); PLATELET COUNT 77 X10'3 (140-440)
[2023-02-25 07:17] LABS: INR 1.4 INR; PROTHROMBIN TIME 14.6 SECONDS (9.0-12.0)
[2023-02-25 07:43] LABS: ALANINE AMINOTRANSFERASE 81 U/L (12-78); ALBUMIN 2.5 G/DL (3.4-5.0); ALKALINE PHOSPHATASE 236 IU/L (46-116); AMYLASE 67 U/L (25-115); ANION GAP 9 (8-16); ASPARTATE AMINO TRANSFERASE 139 U/L (10-37); BILIRUBIN,TOTAL 4.6 MG/DL (0.1-1.0); BLOOD UREA NITROGEN 10 MG/DL (7-18); BUN/CREATININE RATIO 11.5 (10.0-20.0); CALCIUM 7.9 MG/DL (8.5-10.1); CHLORIDE 101 MMOL/L (99-107); CREATININE 0.87 MG/DL (0.40-0.90); GLUCOSE 116 MG/DL (70-104); LIPASE 121 U/L (16-77); MAGNESIUM 1.5 MG/DL (1.5-2.4); SODIUM 140 MMOL/L (135-145); TOTAL CARBON DIOXIDE 29.9 MMOL/L (24-32); eCRCL 86 ML/MIN; eGFR 75 ML/MIN
[2023-02-25 07:48] LABS: ALBUMIN/GLOBULIN RATIO 0.8 (1.1-1.5); PHOSPHORUS 1.6 MG/DL (2.3-4.5); POTASSIUM 2.7 MMOL/L (3.5-5.1); TOTAL PROTEIN 5.7 G/DL (6.4-8.2)
[2023-02-25 08:55] VITALS: RESP 18
[2023-02-25] MEDS ORDERED: LORazepam 2 mg/ml vial IV PRN (08:55)
[2023-02-25] MEDS ORDERED: LORazepam 1 MG tablet PO PRN (08:55)
[2023-02-25] MEDS ORDERED: potassium Cl 20 mEq SR tablet PO PRN (08:55)
[2023-02-25 09:03] LABS: ANISOCYTOSIS 2+; HYPOCHROMASIA 1+; PLATELET ESTIMATE DECREASED; TARGET CELLS FEW; TOTAL CELLS COUNTED 100
[2023-02-25 09:04] LABS: POLYCHROMASIA FEW
[2023-02-25] MEDS: ringers solution, lacted 1,000 ML IV SCH ×5 (09:05→20:33)
[2023-02-25] MEDS: pantoprazole 40 MG vial IV SCH (09:24)
[2023-02-25] MEDS: ferrous sulfate 300mg/5ml UD oral liquid PO SCH ×3 (09:31→20:39)
[2023-02-25] MEDS: thiamine 100mg/ml 2ml inj. IV SCH ×3 (09:31→20:36)
[2023-02-25] MEDS: multivitamins, therapeutics tablet PO SCH (09:31)
[2023-02-25] MEDS: Neutra Phos packet PO PRN ×2 (09:31→20:36)
[2023-02-25] MEDS: potassium Cl 20 mEq SR tablet PO PRN ×3 (09:32→20:35)
[2023-02-25 10:00] VITALS: BP 137/95; PULSE 80; RESP 16; TEMP 98.5; O2SAT 96
[2023-02-25] MEDS ORDERED: HYDR-3965 PO (11:41)
[2023-02-25] MEDS ORDERED: FER300L PO (12:16)
[2023-02-25] MEDS ORDERED: FOLI IV (12:16)
[2023-02-25] MEDS: lactose-reduced food (Ensure Enlive) - 237ml bottle PO SCH ×2 (13:00→18:00)
[2023-02-25 18:00] VITALS: BP 174/97; PULSE 80; RESP 18; TEMP 98.9; O2SAT 96
[2023-02-25] MEDS: folic acid 1mg/0.2ml inj IV SCH (18:17)
[2023-02-25 20:00] VITALS: RESP 15; O2SAT 97
[2023-02-25] MEDS: pantoprazole 40mg Tablet.DR PO SCH (20:36)
[2023-02-25 22:00] VITALS: BP 146/98; PULSE 84; RESP 15; TEMP 98.7; O2SAT 97
[2023-02-25] MEDS: HYDROmorphone 1 mg/ml syringe IV PRN (23:30)
[2023-02-26] MEDS: ondansetron/PF 4mg/2ml inj IV PRN ×2 (00:43→10:24)
[2023-02-26] MEDS: proCHLORperazine 10 MG/2 ml inj IV PRN (01:40)
[2023-02-26 06:00] VITALS: BP 139/93; PULSE 92; RESP 17; TEMP 97.6; O2SAT 97
[2023-02-26 06:31] LABS: BASOPHILS % (AUTO) 0.4 % (0-1); EOSINOPHILS # (AUTO) 0.1 X10'3 (0-0.9); EOSINOPHILS % (AUTO) 0.9 % (0-6); HEMOGLOBIN 10.2 g/dl (12.0-16.0); LYMPHOCYTES # (AUTO) 0.7 X10'3 (1.1-4.8); MEAN CORPUSCULAR HEMOGLOBIN 31.7 PG (27.0-31.0); MEAN CORPUSCULAR HGB CONC 33.9 g/dL (33.0-36.5); MEAN CORPUSCULAR VOLUME 93.7 FL (78-98); MEAN PLATELET VOLUME 8.7 FL (7.4-10.4); MONOCYTES # (AUTO) 1.1 X10'3 (0-0.9); MONOCYTES % (AUTO) 17.3 % (2-12); NEUTROPHILS # (AUTO) 4.3 X10'3 (1.8-7.7); NEUTROPHILS % (AUTO) 70.4 % (42-75); PLATELET COUNT 117 X10'3 (140-440); RED CELL DISTRIBUTION WIDTH 18.7 % (11.5-14.5); WHITE BLOOD COUNT 6.1 X10'3 (4.5-11.0)
[2023-02-26 06:40] LABS: INR 1.4 INR; PROTHROMBIN TIME 14.9 SECONDS (9.0-12.0)
[2023-02-26 06:59] LABS: ALANINE AMINOTRANSFERASE 82 U/L (12-78); ALBUMIN 2.7 G/DL (3.4-5.0); ALKALINE PHOSPHATASE 253 IU/L (46-116); AMYLASE 72 U/L (25-115); ANION GAP 9 (8-16); ASPARTATE AMINO TRANSFERASE 128 U/L (10-37); BILIRUBIN,TOTAL 4.4 MG/DL (0.1-1.0); BLOOD UREA NITROGEN 7 MG/DL (7-18); BUN/CREATININE RATIO 10.1 (10.0-20.0); CHLORIDE 99 MMOL/L (99-107); CREATININE 0.69 MG/DL (0.40-0.90); GLUCOSE 86 MG/DL (70-104); LIPASE 123 U/L (16-77); SODIUM 138 MMOL/L (135-145); TOTAL CARBON DIOXIDE 29.6 MMOL/L (24-32); eCRCL 109 ML/MIN; eGFR > 90 ML/MIN
[2023-02-26 07:01] LABS: ALBUMIN/GLOBULIN RATIO 0.8 (1.1-1.5); PHOSPHORUS 2.8 MG/DL (2.3-4.5); TOTAL PROTEIN 6.1 G/DL (6.4-8.2)
[2023-02-26 07:20] LABS: MAGNESIUM 0.9 MG/DL (1.5-2.4)
[2023-02-26 08:00] VITALS: RESP 16; O2SAT 97
[2023-02-26] MEDS: lactose-reduced food (Ensure Enlive) - 237ml bottle PO SCH ×3 (08:00→18:00)
[2023-02-26] MEDS: magnesium 4gm in 100ml NS 100 ML IV PRN (08:32)
[2023-02-26] MEDS: folic acid 1mg/0.2ml inj IV SCH (09:30)
[2023-02-26 10:00] VITALS: BP 134/96; PULSE 91; RESP 16; TEMP 97.7; O2SAT 93
[2023-02-26] MEDS: thiamine 100mg/ml 2ml inj. IV SCH (10:10)
[2023-02-26] MEDS: ferrous sulfate 300mg/5ml UD oral liquid PO SCH ×3 (10:10→17:30)
[2023-02-26] MEDS: pantoprazole 40mg Tablet.DR PO SCH ×2 (10:10→19:43)
[2023-02-26] MEDS: multivitamins, therapeutics tablet PO SCH (10:11)
[2023-02-26] MEDS ORDERED: ONDA4TAB12 PO (11:00)
[2023-02-26 18:00] VITALS: BP 116/89; PULSE 107; RESP 16; TEMP 99.9; O2SAT 96
[2023-02-26] MEDS: HYDROmorphone 1 mg/ml syringe IV PRN (19:42)
[2023-02-26] MEDS: proCHLORperazine 10 MG/2 ml inj IV SCH (19:43)
[2023-02-26 20:00] VITALS: RESP 16; O2SAT 96
[2023-02-26] MEDS ORDERED: normal saline 1000ml 1,000 ML IV SCH (20:00)
[2023-02-26] MEDS ORDERED: magnesium 2GM in 50ml NS 50 ML IV PRN (20:25)
[2023-02-26] MEDS: traZODone 50mg tablet PO SCH (20:29)
[2023-02-26] MEDS: potassium Cl 20 mEq SR tablet PO PRN (20:29)
[2023-02-26 22:00] VITALS: BP 136/87; PULSE 100; RESP 16; TEMP 98.9; O2SAT 94
[2023-02-27] MEDS: proCHLORperazine 10 MG/2 ml inj IV SCH ×4 (02:38→20:21)
[2023-02-27] MEDS: potassium Cl 20 mEq SR tablet PO PRN (02:41)
[2023-02-27 06:00] VITALS: BP 140/87; PULSE 107; RESP 14; TEMP 98.2; O2SAT 95
[2023-02-27] MEDS: multivitamins, therapeutics tablet PO SCH (07:06)
[2023-02-27] MEDS: pantoprazole 40mg Tablet.DR PO SCH ×2 (07:06→20:21)
[2023-02-27] MEDS: ferrous sulfate 300mg/5ml UD oral liquid PO SCH ×3 (07:07→17:30)
[2023-02-27] MEDS: HYDROmorphone 1 mg/ml syringe IV PRN ×2 (07:09→20:24)
[2023-02-27 08:20] VITALS: RESP 18; O2SAT 92
[2023-02-27] MEDS ORDERED: LORazepam 1 MG tablet PO PRN (08:55)
[2023-02-27] MEDS ORDERED: LORazepam 2 mg/ml vial IV PRN (08:55)
[2023-02-27 09:16] LABS: BASOPHILS # (AUTO) 0.1 X10'3 (0-0.2); BASOPHILS % (AUTO) 0.7 % (0-1); EOSINOPHILS % (AUTO) 0.6 % (0-6); HEMATOCRIT 27.1 % (35.0-45.0); HEMOGLOBIN 9.1 g/dl (12.0-16.0); LYMPHOCYTES # (AUTO) 0.5 X10'3 (1.1-4.8); LYMPHOCYTES % (AUTO) 7.9 % (21-51); MEAN CORPUSCULAR HEMOGLOBIN 31.4 PG (27.0-31.0); MEAN CORPUSCULAR HGB CONC 33.7 g/dL (33.0-36.5); MEAN CORPUSCULAR VOLUME 93.1 FL (78-98); MEAN PLATELET VOLUME 8.7 FL (7.4-10.4); MONOCYTES # (AUTO) 0.7 X10'3 (0-0.9); NEUTROPHILS # (AUTO) 5.6 X10'3 (1.8-7.7); NEUTROPHILS % (AUTO) 80.8 % (42-75); PLATELET COUNT 152 X10'3 (140-440); RED BLOOD COUNT 2.91 X10'6 (4.20-5.60); RED CELL DISTRIBUTION WIDTH 18.7 % (11.5-14.5); WHITE BLOOD COUNT 6.9 X10'3 (4.5-11.0)
[2023-02-27 09:26] LABS: INR 1.3 INR; PROTHROMBIN TIME 14.2 SECONDS (9.0-12.0)
[2023-02-27 09:32] LABS: ALANINE AMINOTRANSFERASE 73 U/L (12-78); ALBUMIN 2.5 G/DL (3.4-5.0); ALKALINE PHOSPHATASE 234 IU/L (46-116); AMYLASE 59 U/L (25-115); ANION GAP 8 (8-16); ASPARTATE AMINO TRANSFERASE 111 U/L (10-37); BILIRUBIN,TOTAL 4.5 MG/DL (0.1-1.0); BLOOD UREA NITROGEN 6 MG/DL (7-18); CALCIUM 8.2 MG/DL (8.5-10.1); CHLORIDE 100 MMOL/L (99-107); GLUCOSE 102 MG/DL (70-104); LIPASE 114 U/L (16-77); MAGNESIUM 1.3 MG/DL (1.5-2.4); POTASSIUM 3.2 MMOL/L (3.5-5.1); SODIUM 135 MMOL/L (135-145); TOTAL CARBON DIOXIDE 26.6 MMOL/L (24-32); eCRCL 125 ML/MIN; eGFR > 90 ML/MIN
[2023-02-27 09:34] LABS: ALBUMIN/GLOBULIN RATIO 0.7 (1.1-1.5); PHOSPHORUS 3.7 MG/DL (2.3-4.5); TOTAL PROTEIN 5.9 G/DL (6.4-8.2)
[2023-02-27 10:00] VITALS: BP 126/77; PULSE 86; RESP 18; TEMP 97.5; O2SAT 91
[2023-02-27 10:41] LABS: ANISOCYTOSIS 2+; HYPOCHROMASIA 2+; PLATELET ESTIMATE NORMAL; ROULEAUX 1+
[2023-02-27] MEDS: HYDROcodone/acetaminophen 10/325mg tab PO PRN ×2 (12:50→17:03)
[2023-02-27] MEDS: levoFLOXACIN-Levaquin 500mg/D5 100 ML IV SCH (12:59)
[2023-02-27] MEDS: metroNIDAZOLE-Flagyl 500mg/NS 100 ML IV SCH (16:33)
[2023-02-27] MEDS: magnesium Cl slow-release 64mg tablet PO PRN (16:54)
[2023-02-27 18:00] VITALS: BP 135/90; PULSE 94; RESP 15; TEMP 97.3; O2SAT 93
[2023-02-27] MEDS: lactose-reduced food (Ensure Enlive) - 237ml bottle PO SCH (18:00)
[2023-02-27 20:00] VITALS: RESP 15; O2SAT 93
[2023-02-27] MEDS: traZODone 50mg tablet PO SCH (20:20)
[2023-02-27 22:00] VITALS: BP 124/78; PULSE 88; RESP 20; TEMP 98.1; O2SAT 95
[2023-02-28] MEDS: metroNIDAZOLE-Flagyl 500mg/NS 100 ML IV SCH ×4 (00:11→23:52)
[2023-02-28] MEDS: proCHLORperazine 10 MG/2 ml inj IV SCH ×4 (02:16→19:49)
[2023-02-28] MEDS: HYDROmorphone 1 mg/ml syringe IV PRN ×6 (02:16→23:52)
[2023-02-28 07:13] VITALS: BP 137/76; PULSE 68; RESP 16; TEMP 98.1; O2SAT 97
[2023-02-28] MEDS: lactose-reduced food (Ensure Enlive) - 237ml bottle PO SCH ×3 (08:00→18:00)
[2023-02-28] MEDS: multivitamins, therapeutics tablet PO SCH (08:00)
[2023-02-28] MEDS: pantoprazole 40mg Tablet.DR PO SCH ×2 (08:00→19:49)
[2023-02-28] MEDS: ferrous sulfate 300mg/5ml UD oral liquid PO SCH ×3 (08:14→17:30)
[2023-02-28 08:15] VITALS: RESP 16
[2023-02-28] MEDS: levoFLOXACIN-Levaquin 500mg/D5 100 ML IV SCH (09:31)
[2023-02-28 11:18] VITALS: BP 101/66; PULSE 104; RESP 16; TEMP 97.9; O2SAT 94
[2023-02-28 12:58] LABS: BASOPHILS # (AUTO) 0.1 X10'3 (0-0.2); LYMPHOCYTES # (AUTO) 0.8 X10'3 (1.1-4.8)
[2023-02-28 12:59] LABS: INR 1.4 INR; PROTHROMBIN TIME 14.3 SECONDS (9.0-12.0)
[2023-02-28 13:00] LABS: BASOPHILS % (AUTO) 1.2 % (0-1); EOSINOPHILS % (AUTO) 0.5 % (0-6); HEMATOCRIT 31.2 % (35.0-45.0); HEMOGLOBIN 10.3 g/dl (12.0-16.0); LYMPHOCYTES % (AUTO) 14.2 % (21-51); MEAN CORPUSCULAR HEMOGLOBIN 31.2 PG (27.0-31.0); MEAN CORPUSCULAR HGB CONC 32.9 g/dL (33.0-36.5); MEAN CORPUSCULAR VOLUME 94.8 FL (78-98); MEAN PLATELET VOLUME 9.5 FL (7.4-10.4); MONOCYTES # (AUTO) 0.4 X10'3 (0-0.9); MONOCYTES % (AUTO) 7.3 % (2-12); NEUTROPHILS # (AUTO) 4.5 X10'3 (1.8-7.7); NEUTROPHILS % (AUTO) 76.8 % (42-75); PLATELET COUNT 175 X10'3 (140-440); RED BLOOD COUNT 3.29 X10'6 (4.20-5.60); RED CELL DISTRIBUTION WIDTH 18.8 % (11.5-14.5); WHITE BLOOD COUNT 5.9 X10'3 (4.5-11.0)
[2023-02-28 13:03] LABS: ALANINE AMINOTRANSFERASE 73 U/L (12-78); ALBUMIN 2.6 G/DL (3.4-5.0); ALBUMIN/GLOBULIN RATIO 0.6 (1.1-1.5); ALKALINE PHOSPHATASE 226 IU/L (46-116); AMYLASE 62 U/L (25-115); ANION GAP 9 (8-16); ASPARTATE AMINO TRANSFERASE 111 U/L (10-37); BILIRUBIN,TOTAL 3.7 MG/DL (0.1-1.0); BLOOD UREA NITROGEN 6 MG/DL (7-18); BUN/CREATININE RATIO 10.9 (10.0-20.0); CALCIUM 8.9 MG/DL (8.5-10.1); CHLORIDE 100 MMOL/L (99-107); CREATININE 0.55 MG/DL (0.40-0.90); GLUCOSE 94 MG/DL (70-104); LIPASE 144 U/L (16-77); PHOSPHORUS 3.6 MG/DL (2.3-4.5); POTASSIUM 3.7 MMOL/L (3.5-5.1); SODIUM 136 MMOL/L (135-145); TOTAL CARBON DIOXIDE 26.6 MMOL/L (24-32); TOTAL PROTEIN 6.8 G/DL (6.4-8.2); eCRCL 136 ML/MIN; eGFR > 90 ML/MIN
[2023-02-28 13:31] LABS: ANISOCYTOSIS 2+; HYPOCHROMASIA 2+; PLATELET ESTIMATE NORMAL; SCHISTOCYTES FEW
[2023-02-28 18:00] VITALS: BP 131/85; PULSE 85; RESP 16; TEMP 99.2; O2SAT 98
[2023-02-28 20:00] VITALS: RESP 16; O2SAT 98
[2023-02-28] MEDS: traZODone 50mg tablet PO SCH (20:55)
[2023-02-28 22:00] VITALS: BP 142/89; PULSE 84; RESP 16; TEMP 98.6; O2SAT 95
[2023-03-01] MEDS ORDERED: HYDROcodone/acetaminophen 5mg/325mg tablet PO PRN (01:50)
[2023-03-01] MEDS: proCHLORperazine 10 MG/2 ml inj IV SCH ×3 (02:00→13:16)
[2023-03-01] MEDS: HYDROcodone/acetaminophen 10/325mg tab PO PRN ×3 (02:09→12:02)
[2023-03-01] MEDS: magnesium Cl slow-release 64mg tablet PO PRN (02:10)
[2023-03-01 06:00] VITALS: BP 123/83; PULSE 75; RESP 17; TEMP 98; O2SAT 96
[2023-03-01] MEDS: multivitamins, therapeutics tablet PO SCH (07:30)
[2023-03-01] MEDS: pantoprazole 40mg Tablet.DR PO SCH (07:30)
[2023-03-01] MEDS: ferrous sulfate 300mg/5ml UD oral liquid PO SCH ×2 (07:30→12:02)
[2023-03-01 08:00] VITALS: RESP 17; O2SAT 97
[2023-03-01] MEDS ORDERED: metroNIDAZOLE 500mg tablet PO SCH (08:00)
[2023-03-01 10:00] VITALS: BP 128/82; PULSE 75; RESP 16; TEMP 98.2; O2SAT 94
[2023-03-01] MEDS ORDERED: levoFLOXACIN 500mg tablet PO SCH (11:00)
[2023-03-01] MEDS ORDERED: MULT-25 PO (11:34)
[2023-03-01] MEDS ORDERED: LEVO-65 PO (11:34)
[2023-03-01] MEDS ORDERED: METR-159 PO (11:34)
[2023-03-01 12:02] VITALS: RESP 15
[2023-03-01] MEDS: lactose-reduced food (Ensure Enlive) - 237ml bottle PO SCH (13:15)
== END 2023-03-01 14:10 | disposition home or self-care (01) | DRG 282 ==
LOC: ER 02-20 → ED HOLD 02-20 02:56 → CICU 2S 02-20 03:52 → ORTHO 4S 02-22 14:26
PROVIDERS: ADMIT Family Medicine; ATTEND Internal Medicine
DX: K85.20 Alcohol induced acute pancreatitis without necrosis or infection (principal); N17.0 Acute kidney failure with tubular necrosis; R57.1 Hypovolemic shock; F10.131 Alcohol abuse with withdrawal delirium; G92.8 Other toxic encephalopathy; E87.20 Acidosis, unspecified; E83.39 Other disorders of phosphorus metabolism; E86.0 Dehydration; K70.10 Alcoholic hepatitis without ascites; D64.9 Anemia, unspecified; R56.9 Unspecified convulsions; R55 Syncope and collapse; E83.42 Hypomagnesemia; K76.0 Fatty (change of) liver, not elsewhere classified; K80.20 Calculus of gallbladder without cholecystitis without obstruction; E87.6 Hypokalemia; R73.9 Hyperglycemia, unspecified; D69.59 Other secondary thrombocytopenia; Z88.0 Allergy status to penicillin; Z79.899 Other long term (current) drug therapy
CPT/HCPCS: 36415; 36600; 70450; 71045; 73564; 74176; 74181; 76700; 80048; 80053; 80305; 80320; 81001; 81025; 82140; 82150; 82570; 82803; 82948; 83036; 83540; 83550; 83605; 83690; 83735; 83935; 84100; 84145; 84300; 84484; 85007; 85008; 85018; 85025; 85610; 85730; 87040; 87081; 93005; 94760; 97116; 97161; 97530; 97535; 99285; A4314; A4615; A5200; A6258; A6446; A6449; C1751; C1758; C9113; G0378; J0696; J0780; J1170; J1644; J1720; J1815; J1956; J2060; J2405; J3411; J3475; J3480; J3490; J7030; J7040; J7050; J7060; J7070; J7120; P9045

== ENCOUNTER 2024-01-15 19:16 | Inpatient (IN) | payer MEDICAID ==
[~2024-01-15] VITALS: Ht 167.6 cm; Wt 72.7 kg
[~2024-01-15 19:16] MED LIST changes: -CLIN-214 PO; +FER300L PO; +FOLI IV; +LEVO-65 PO; +METR-159 PO; +MULT-25 PO; +NO HOME MEDS; +ONDA-243 PO; -ONDA4TAB12 PO; -PANT20TA18 PO; -POTA-208 PO
[2024-01-16 00:27] LABS: BASOPHILS # (AUTO) 0.1 X10'3 (0-0.2); BASOPHILS % (AUTO) 2.3 % (0-1); EOSINOPHILS % (AUTO) 0.5 % (0-6); HEMATOCRIT 38.2 % (35.0-45.0); HEMOGLOBIN 12.4 g/dl (12.0-16.0); LYMPHOCYTES # (AUTO) 1.9 X10'3 (1.1-4.8); LYMPHOCYTES % (AUTO) 36.7 % (21-51); MEAN CORPUSCULAR HEMOGLOBIN 28.1 PG (27.0-31.0); MEAN CORPUSCULAR HGB CONC 32.4 g/dL (33.0-36.5); MEAN PLATELET VOLUME 7.4 FL (7.4-10.4); MONOCYTES # (AUTO) 0.5 X10'3 (0-0.9); MONOCYTES % (AUTO) 9.6 % (2-12); NEUTROPHILS # (AUTO) 2.6 X10'3 (1.8-7.7); NEUTROPHILS % (AUTO) 50.9 % (42-75); PLATELET COUNT 163 X10'3 (140-440); RED BLOOD COUNT 4.39 X10'6 (4.20-5.60); WHITE BLOOD COUNT 5.1 X10'3 (4.5-11.0)
[2024-01-16 00:40] LABS: ALANINE AMINOTRANSFERASE 47 U/L (12-78); ALBUMIN 4.7 G/DL (3.4-5.0); ALBUMIN/GLOBULIN RATIO 0.9 (1.1-1.5); ALKALINE PHOSPHATASE 132 IU/L (46-116); ANION GAP 21 (8-16); ASPARTATE AMINO TRANSFERASE 104 U/L (10-37); BILIRUBIN,TOTAL 1.9 MG/DL (0.1-1.0); BLOOD UREA NITROGEN 8 MG/DL (7-18); BUN/CREATININE RATIO 12.1 (10.0-20.0); CALCIUM 9.3 MG/DL (8.5-10.1); CHLORIDE 93 MMOL/L (99-107); CREATININE 0.66 MG/DL (0.40-0.90); GLUCOSE 60 MG/DL (70-104); LIPASE 200 U/L (16-77); POTASSIUM 3.5 MMOL/L (3.5-5.1); SODIUM 135 MMOL/L (135-145); TOTAL CARBON DIOXIDE 21.4 MMOL/L (24-32); TOTAL PROTEIN 9.8 G/DL (6.4-8.2); eCRCL 112 ML/MIN; eGFR > 90 ML/MIN
[2024-01-16 00:44] LABS: BILIRUBIN,URINE MODERATE (Neg); CLARITY,URINE SLIGHTLY CLOUDY (Clear); COLOR,URINE YELLOW (Yellow); GLUCOSE, URINE NEGATIVE (Neg); KETONES,URINE 15 mg/dl (Neg); LEUKOCYTE ESTERASE ,URINE NEGATIVE (Neg); NITRITES, URINE NEGATIVE (Neg); OCCULT BLOOD,URINE NEGATIVE (Neg); PH,URINE 5.5 (4.8-8.0); PROTEIN,URINE 100 mg/dl (Neg); URINE HCG NEGATIVE (NEG)
[2024-01-16 00:45] LABS: UA COLLECTION TYPE CLN CATCH MIDSTREAM
[2024-01-16 00:58] LABS: BACTERIA,URINE 2+ /HPF (Neg); MUCUS STRANDS FEW /LPF (Neg); SQUAMOUS EPITHELIAL CELL,UR MANY /LPF (FEW); WBC,URINE 50-100 /HPF (0-4)
[2024-01-16 01:04] LABS: MAGNESIUM 1.6 MG/DL (1.5-2.4)
[2024-01-16 01:05] LABS: ETHANOL 140 MG/DL (<10)
[2024-01-16] MEDS: ondansetron/PF 4mg/2ml inj IV ONE (02:14)
[2024-01-16] MEDS: HYDROmorphone 1 mg/ml syringe IV ONE (02:14)
[2024-01-16] MEDS: dexamethasone sod phosphate 10mg/ml inj IM STA (02:15)
[2024-01-16] MEDS: CefTRIAXone 2gm/D5W 50ml BAG 50 ML IV ONE (02:15)
[2024-01-16] MEDS: normal saline 1000ML IV soln IV ONE (02:15)
[2024-01-16 02:17] LABS: URINE AMPHETAMINE SCREEN NEGATIVE (Neg); URINE BARBITUATE SCREEN NEGATIVE (Neg); URINE BENZODIAZEPINES SCREEN NEGATIVE (Neg); URINE CANNABINOID SCREEN NEGATIVE (Neg); URINE COCAINE SCREEN NEGATIVE (Neg); URINE METHADONE SCREEN NEGATIVE (Neg); URINE OPIATE SCREEN NEGATIVE (Neg); URINE PHENCYCLIDINE SCREEN NEGATIVE (Neg)
[2024-01-16] MEDS: diphenhydrAMINE 25 MG/10 ML UD oral solution PO ONE (02:31)
[2024-01-16] MEDS: LORazepam 2 mg/ml vial IV ONE (02:31)
[2024-01-16] MEDS: normal saline 1000ML IV soln IVB ONE (02:37)
[2024-01-16] MEDS ORDERED: iohexol 300mg/ml 100ml inj. ONE (02:41)
[2024-01-16] MEDS ORDERED: potassium Cl 40MEQ/1/2NS 520ml 520 ML IV PRN (03:00)
[2024-01-16] MEDS ORDERED: potassium Cl 20 mEq SR tablet PO PRN (03:00)
[2024-01-16] MEDS ORDERED: haloperidol lactate 5mg/ml inj IM PRN (03:00)
[2024-01-16] MEDS ORDERED: mag hydrox/Alum hydrox/simeth 30ml oral suspension PO PRN (03:00)
[2024-01-16] MEDS ORDERED: dextrose 50%-water 50ml dispensing syringe IV PRN (03:00)
[2024-01-16] MEDS ORDERED: magnesium sulf-water 4G/100mL 100 ML IV PRN (03:00)
[2024-01-16] MEDS ORDERED: magnesium hydroxide 30ml (MOM) UD suspension PO PRN (03:00)
[2024-01-16] MEDS ORDERED: magnesium Cl slow-release 64mg tablet PO PRN (03:00)
[2024-01-16] MEDS ORDERED: magnesium sulf-water 2g/50mL 50 ML IV PRN (03:00)
[2024-01-16] MEDS ORDERED: acetaminophen 325mg tablet PO PRN (03:00)
[2024-01-16] MEDS: CefTRIAXone/D5W-Rocephin 1gm 50 ML IV SCH (05:00)
[2024-01-16] MEDS: normal saline 1000ml 1,000 ML IV SCH (05:07)
[2024-01-16 07:13] LABS: OSMOLALITY 320 MOSM/K (280-300)
[2024-01-16 07:26] VITALS: BP 135/85; PULSE 81; RESP 15; TEMP 99.1; O2SAT 97
[2024-01-16] MEDS: K and/or MAG REPLACEMENT MC SCH (08:00)
[2024-01-16] MEDS: morphine 2 MG/ML inj. syringe IV PRN (08:12)
[2024-01-16] MEDS: ondansetron/PF 4mg/2ml inj IV PRN (08:13)
[2024-01-16 09:00] VITALS: RESP 16
[2024-01-16] MEDS: LORazepam 2 mg/ml vial IV PRN (10:43)
[2024-01-16] MEDS: thiamine 100mg/ml 2ml inj. IV SCH (10:44)
[2024-01-16] MEDS: docusate sod 100mg capsule PO SCH (10:45)
[2024-01-16] MEDS: heparin, porcine 5000 units/ml vial SQ SCH (10:46)
[2024-01-16] MEDS: folic acid 1mg/0.2ml inj IV SCH (10:47)
[2024-01-16 18:00] VITALS: BP 153/92; PULSE 111; RESP 18; TEMP 98; O2SAT 97
[2024-01-16] MEDS: HYDROcodone/acetaminophen 5mg/325mg tablet PO PRN (19:27)
[2024-01-16 20:00] VITALS: RESP 18; O2SAT 97
[2024-01-16 22:00] VITALS: BP 144/93; PULSE 93; RESP 16; TEMP 98.4; O2SAT 98
[2024-01-17 06:00] VITALS: BP 128/82; PULSE 88; RESP 18; TEMP 98.1; O2SAT 95
[2024-01-17 06:40] LABS: BASOPHILS % (AUTO) 0.2 % (0-1); EOSINOPHILS % (AUTO) 0 % (0-6); HEMATOCRIT 29.5 % (35.0-45.0); HEMOGLOBIN 9.7 g/dl (12.0-16.0); LYMPHOCYTES # (AUTO) 0.6 X10'3 (1.1-4.8); LYMPHOCYTES % (AUTO) 18.1 % (21-51); MEAN CORPUSCULAR HEMOGLOBIN 28.7 PG (27.0-31.0); MEAN CORPUSCULAR HGB CONC 32.8 g/dL (33.0-36.5); MEAN CORPUSCULAR VOLUME 87.5 FL (78-98); MEAN PLATELET VOLUME 7.4 FL (7.4-10.4); MONOCYTES # (AUTO) 0.5 X10'3 (0-0.9); MONOCYTES % (AUTO) 16.3 % (2-12); NEUTROPHILS # (AUTO) 2.1 X10'3 (1.8-7.7); NEUTROPHILS % (AUTO) 65.4 % (42-75); PLATELET COUNT 118 X10'3 (140-440); RED BLOOD COUNT 3.38 X10'6 (4.20-5.60); RED CELL DISTRIBUTION WIDTH 19.3 % (11.5-14.5); WHITE BLOOD COUNT 3.3 X10'3 (4.5-11.0)
[2024-01-17 06:46] LABS: ALANINE AMINOTRANSFERASE 17 U/L (12-78); ALBUMIN 3.1 G/DL (3.4-5.0); ALBUMIN/GLOBULIN RATIO 0.8 (1.1-1.5); ALKALINE PHOSPHATASE 82 IU/L (46-116); ANION GAP 8 (8-16); ASPARTATE AMINO TRANSFERASE 45 U/L (10-37); BILIRUBIN,TOTAL 0.8 MG/DL (0.1-1.0); BLOOD UREA NITROGEN 6 MG/DL (7-18); BUN/CREATININE RATIO 9.7 (10.0-20.0); CALCIUM 7.4 MG/DL (8.5-10.1); CHLORIDE 105 MMOL/L (99-107); CREATININE 0.62 MG/DL (0.40-0.90); GLUCOSE 126 MG/DL (70-104); POTASSIUM 3.5 MMOL/L (3.5-5.1); SODIUM 139 MMOL/L (135-145); TOTAL CARBON DIOXIDE 26.3 MMOL/L (24-32); TOTAL PROTEIN 6.8 G/DL (6.4-8.2); eCRCL 120 ML/MIN; eGFR > 90 ML/MIN
[2024-01-17] MEDS: LORazepam 2 mg/ml vial IV PRN (07:41)
[2024-01-17 07:48] LABS: PLATELET ESTIMATE DECREASED
[2024-01-17 07:49] LABS: ELLIPTOCYTES FEW; POLYCHROMASIA FEW; STOMATOCYTES FEW; TEAR DROP CELLS FEW
[2024-01-17] MEDS: HYDROmorphone inj. 0.5 MG/0.5 ML DISP.SYRIN IV PRN (13:09)
[2024-01-17 18:00] VITALS: BP 141/95; PULSE 100; RESP 14; TEMP 97.9; O2SAT 98
[2024-01-17 20:00] VITALS: RESP 14; O2SAT 98
[2024-01-17 22:00] VITALS: BP 139/93; PULSE 101; RESP 18; TEMP 98.7; O2SAT 96
[2024-01-18 06:00] VITALS: BP 127/93; PULSE 91; RESP 20; TEMP 98; O2SAT 96
[2024-01-18 06:38] LABS: EOSINOPHILS % (AUTO) 2.5 % (0-6); HEMOGLOBIN 9.6 g/dl (12.0-16.0); LYMPHOCYTES # (AUTO) 0.6 X10'3 (1.1-4.8); LYMPHOCYTES % (AUTO) 32.1 % (21-51); MEAN CORPUSCULAR HEMOGLOBIN 28.1 PG (27.0-31.0); MEAN CORPUSCULAR HGB CONC 31.9 g/dL (33.0-36.5); MEAN CORPUSCULAR VOLUME 87.9 FL (78-98); MEAN PLATELET VOLUME 7.2 FL (7.4-10.4); MONOCYTES # (AUTO) 0.3 X10'3 (0-0.9); MONOCYTES % (AUTO) 13.2 % (2-12); NEUTROPHILS % (AUTO) 51.2 % (42-75); PLATELET COUNT 102 X10'3 (140-440); RED BLOOD COUNT 3.41 X10'6 (4.20-5.60); RED CELL DISTRIBUTION WIDTH 19.5 % (11.5-14.5); WHITE BLOOD COUNT 1.9 X10'3 (4.5-11.0)
[2024-01-18 06:57] LABS: ALANINE AMINOTRANSFERASE 32 U/L (12-78); ALBUMIN 3.3 G/DL (3.4-5.0); ALBUMIN/GLOBULIN RATIO 0.9 (1.1-1.5); ALKALINE PHOSPHATASE 85 IU/L (46-116); ANION GAP 8 (8-16); ASPARTATE AMINO TRANSFERASE 113 U/L (10-37); BILIRUBIN,TOTAL 0.6 MG/DL (0.1-1.0); BLOOD UREA NITROGEN 5 MG/DL (7-18); BUN/CREATININE RATIO 8.8 (10.0-20.0); CALCIUM 7.9 MG/DL (8.5-10.1); CHLORIDE 103 MMOL/L (99-107); CREATININE 0.57 MG/DL (0.40-0.90); GLUCOSE 122 MG/DL (70-104); SODIUM 137 MMOL/L (135-145); TOTAL CARBON DIOXIDE 25.9 MMOL/L (24-32); TOTAL PROTEIN 6.9 G/DL (6.4-8.2); eCRCL 130 ML/MIN; eGFR > 90 ML/MIN
[2024-01-18 07:16] LABS: ANISOCYTOSIS 2+; PLATELET ESTIMATE DECREASED; TOTAL CELLS COUNTED 100
[2024-01-18 07:17] LABS: ROULEAUX 1+
[2024-01-18] MEDS: potassium Cl 20 mEq SR tablet PO PRN (07:18)
[2024-01-18] MEDS: LORazepam 1 MG tablet PO PRN (09:04)
[2024-01-18] MEDS: calcium carbonate 500mg chew tablet PO PRN (09:04)
[2024-01-18] MEDS: HYDROcodone/acetaminophen 10/325mg tab PO PRN (09:06)
[2024-01-18 10:00] VITALS: BP 129/94; PULSE 91; RESP 14; TEMP 97.9; O2SAT 97
[2024-01-18 18:00] VITALS: BP 121/92; PULSE 106; RESP 14; TEMP 97.5; O2SAT 96
[2024-01-18 22:00] VITALS: BP 145/102; PULSE 103; RESP 18; TEMP 98.1; O2SAT 95
[2024-01-19 05:20] LABS: HBSAG SCREEN Negative (Negative); HEP B CORE AB, IGM Negative (Negative); HEPATITIS C VIRUS ANTIBODY Reactive (Non Reactive)
[2024-01-19 06:11] LABS: EOSINOPHILS # (AUTO) 0.1 X10'3 (0-0.9); EOSINOPHILS % (AUTO) 2.6 % (0-6); HEMATOCRIT 33.2 % (35.0-45.0); HEMOGLOBIN 10.5 g/dl (12.0-16.0); LYMPHOCYTES # (AUTO) 0.9 X10'3 (1.1-4.8); LYMPHOCYTES % (AUTO) 28.4 % (21-51); MEAN CORPUSCULAR HEMOGLOBIN 27.7 PG (27.0-31.0); MEAN CORPUSCULAR HGB CONC 31.5 g/dL (33.0-36.5); MEAN PLATELET VOLUME 7.4 FL (7.4-10.4); MONOCYTES # (AUTO) 0.4 X10'3 (0-0.9); MONOCYTES % (AUTO) 14.5 % (2-12); NEUTROPHILS # (AUTO) 1.6 X10'3 (1.8-7.7); NEUTROPHILS % (AUTO) 53.5 % (42-75); PLATELET COUNT 120 X10'3 (140-440); RED BLOOD COUNT 3.78 X10'6 (4.20-5.60); RED CELL DISTRIBUTION WIDTH 20.2 % (11.5-14.5)
[2024-01-19 06:39] LABS: ANISOCYTOSIS 3+; HYPOCHROMASIA 1+; PLATELET ESTIMATE DECREASED; STOMATOCYTES FEW; TOTAL CELLS COUNTED 100
[2024-01-19 06:40] LABS: ELLIPTOCYTES FEW; TEAR DROP CELLS FEW
[2024-01-19 06:43] LABS: ALANINE AMINOTRANSFERASE 42 U/L (12-78); ALBUMIN 3.6 G/DL (3.4-5.0); ALBUMIN/GLOBULIN RATIO 0.9 (1.1-1.5); ALKALINE PHOSPHATASE 101 IU/L (46-116); ANION GAP 6 (8-16); ASPARTATE AMINO TRANSFERASE 98 U/L (10-37); BILIRUBIN,TOTAL 0.8 MG/DL (0.1-1.0); BLOOD UREA NITROGEN 4 MG/DL (7-18); BUN/CREATININE RATIO 6.7 (10.0-20.0); CALCIUM 8.9 MG/DL (8.5-10.1); CHLORIDE 102 MMOL/L (99-107); GLUCOSE 117 MG/DL (70-104); POTASSIUM 3.8 MMOL/L (3.5-5.1); SODIUM 136 MMOL/L (135-145); TOTAL CARBON DIOXIDE 27.7 MMOL/L (24-32); TOTAL PROTEIN 7.6 G/DL (6.4-8.2); eCRCL 124 ML/MIN; eGFR > 90 ML/MIN
[2024-01-19] MEDS ORDERED: LORA-269 PO (08:39)
[2024-01-19] MEDS ORDERED: HYDR-3965 PO (08:39)
[2024-01-19] MEDS ORDERED: LEVO-65 PO (08:51)
[2024-01-19 10:00] VITALS: BP 123/89; PULSE 92; RESP 14; TEMP 97.7; O2SAT 99
[2024-01-19] MEDS ORDERED: THIA50TA10 PO (10:42)
[2024-01-19] MEDS ORDERED: FOLI0.4T6 PO (10:42)
[2024-01-20] MEDS ORDERED: thiamine 100mg tablet PO SCH (08:00)
[2024-01-20] MEDS ORDERED: folic acid 1mg tablet PO SCH (08:00)
== END 2024-01-19 11:17 | disposition home or self-care (01) | DRG 282 ==
LOC: EEVIPCON 19:17 → ER 19:17 → ED HOLD 01-16 03:11 → ORTHO 4S 01-16 07:13
PROVIDERS: ADMIT Internal Medicine Critical Care Medicine; ATTEND Internal Medicine
DX: K85.20 Alcohol induced acute pancreatitis without necrosis or infection (principal); E87.29 Other acidosis; K70.10 Alcoholic hepatitis without ascites; E86.0 Dehydration; N12 Tubulo-interstitial nephritis, not specified as acute or chronic; F10.129 Alcohol abuse with intoxication, unspecified; N30.00 Acute cystitis without hematuria; Z88.0 Allergy status to penicillin; Z79.899 Other long term (current) drug therapy
CPT/HCPCS: 36415; 71045; 74177; 80053; 80305; 80320; 81001; 81025; 82248; 83605; 83690; 83735; 83930; 84145; 85007; 85008; 85025; 86705; 86803; 87040; 87081; 87088; 87340; 87522; 97116; 97161; 97530; 99285; G0378; J0696; J1100; J1171; J1644; J2060; J2270; J2405; J3411; J3490; J7030; Q0163; Q9967

== ENCOUNTER 2024-01-20 21:01 | Emergency (ER) | payer MEDICAID ==
[~2024-01-20] VITALS: Ht 167.6 cm; Wt 65.9 kg
[~2024-01-20 21:01] MED LIST changes: -FER300L PO; -FOLI IV; +FOLI0.4T6 PO; +HYDR-3965 PO; +LORA-269 PO; -METR-159 PO; -MULT-25 PO; -NO HOME MEDS; -ONDA-243 PO; +THIA50TA10 PO
[2024-01-20 21:11] VITALS: TEMP 98.9
[2024-01-20 21:38] LABS: BASOPHILS % (AUTO) 0.7 % (0-1); EOSINOPHILS # (AUTO) 0.1 X10'3 (0-0.9); EOSINOPHILS % (AUTO) 1.1 % (0-6); HEMATOCRIT 37.4 % (35.0-45.0); LYMPHOCYTES # (AUTO) 1.5 X10'3 (1.1-4.8); LYMPHOCYTES % (AUTO) 22.5 % (21-51); MEAN CORPUSCULAR HEMOGLOBIN 28.2 PG (27.0-31.0); MEAN CORPUSCULAR HGB CONC 32.1 g/dL (33.0-36.5); MEAN CORPUSCULAR VOLUME 87.9 FL (78-98); MEAN PLATELET VOLUME 7.5 FL (7.4-10.4); MONOCYTES # (AUTO) 1.1 X10'3 (0-0.9); MONOCYTES % (AUTO) 16.2 % (2-12); NEUTROPHILS # (AUTO) 3.9 X10'3 (1.8-7.7); NEUTROPHILS % (AUTO) 59.5 % (42-75); PLATELET COUNT 192 X10'3 (140-440); RED BLOOD COUNT 4.26 X10'6 (4.20-5.60); RED CELL DISTRIBUTION WIDTH 20.3 % (11.5-14.5); WHITE BLOOD COUNT 6.6 X10'3 (4.5-11.0)
[2024-01-20 21:53] LABS: ALANINE AMINOTRANSFERASE 39 U/L (12-78); ALBUMIN 3.8 G/DL (3.4-5.0); ALBUMIN/GLOBULIN RATIO 0.8 (1.1-1.5); ALKALINE PHOSPHATASE 113 IU/L (46-116); ANION GAP 14 (8-16); ASPARTATE AMINO TRANSFERASE 65 U/L (10-37); BILIRUBIN,TOTAL 0.6 MG/DL (0.1-1.0); BLOOD UREA NITROGEN 5 MG/DL (7-18); BUN/CREATININE RATIO 9.8 (10.0-20.0); CALCIUM 9.8 MG/DL (8.5-10.1); CHLORIDE 100 MMOL/L (99-107); CREATININE 0.51 MG/DL (0.40-0.90); GLUCOSE 124 MG/DL (70-104); LIPASE 116 U/L (16-77); POTASSIUM 3.7 MMOL/L (3.5-5.1); SODIUM 139 MMOL/L (135-145); TOTAL CARBON DIOXIDE 25.1 MMOL/L (24-32); TOTAL PROTEIN 8.7 G/DL (6.4-8.2); eCRCL 146 ML/MIN; eGFR > 90 ML/MIN
[2024-01-20 22:01] LABS: TOTAL CELLS COUNTED 100
[2024-01-20 22:02] LABS: ANISOCYTOSIS 2+; PLATELET ESTIMATE NORMAL; POLYCHROMASIA FEW
[2024-01-20 22:33] LABS: URINE HCG NEGATIVE (NEG)
[2024-01-20 22:34] LABS: BILIRUBIN,URINE NEGATIVE (Neg); CLARITY,URINE CLEAR (Clear); COLOR,URINE YELLOW (Yellow); GLUCOSE, URINE NEGATIVE (Neg); KETONES,URINE NEGATIVE (Neg); LEUKOCYTE ESTERASE ,URINE NEGATIVE (Neg); NITRITES, URINE NEGATIVE (Neg); OCCULT BLOOD,URINE NEGATIVE (Neg); PROTEIN,URINE NEGATIVE (Neg); UROBILINOGEN,URINE 0.2 E.U/dL (0.2-1.0)
[2024-01-20 23:28] LABS: UA COLLECTION TYPE VOIDED
[2024-01-20 23:59] LABS: ETHANOL 133 MG/DL (<10)
[2024-01-21] MEDS ORDERED: ONDA-245 PO (00:49)
[2024-01-21] MEDS ORDERED: HYDR-3965 PO (00:49)
[2024-01-21 01:25] VITALS: BP 127/82
[2024-01-21] MEDS: ondansetron/PF 4mg/2ml inj IV ONE (01:27)
[2024-01-21] MEDS: normal saline 1000ML IV soln IVB ONE (01:28)
[2024-01-21] MEDS: morphine 4 MG/ML inj SYRINge IV ONE (01:28)
[2024-01-21] MEDS: oxyCODONE IR 5mg (immed. release) tablet PO ONE (02:43)
[2024-01-21 02:48] VITALS: PULSE 98; RESP 18; O2SAT 100
== END 2024-01-21 02:51 | disposition home or self-care (01) ==
LOC: ER 21:01
DX: K85.90 Acute pancreatitis without necrosis or infection, unspecified (principal); F10.20 Alcohol dependence, uncomplicated; Z88.0 Allergy status to penicillin; Z88.1 Allergy status to other antibiotic agents; Z88.5 Allergy status to narcotic agent; Y90.6 Blood alcohol level of 120-199 mg/100 ml
CPT/HCPCS: 36415; 80053; 80320; 81003; 81025; 83690; 85007; 85025; 96361; 96374; 96375; 99284; J2270; J2405; J7030

== ENCOUNTER 2024-03-14 18:50 | Emergency (ER) | payer MEDICAID ==
[~2024-03-14] VITALS: Ht 167.6 cm; Wt 61.9 kg
[~2024-03-14 18:50] MED LIST changes: -FOLI0.4T6 PO; -HYDR-3965 PO; -LEVO-65 PO; +ONDA-245 PO
[2024-03-14 20:02] LABS: BASOPHILS # (AUTO) 0.1 X10'3 (0-0.2); BASOPHILS % (AUTO) 0.9 % (0-1); EOSINOPHILS # (AUTO) 0.1 X10'3 (0-0.9); EOSINOPHILS % (AUTO) 1.2 % (0-6); HEMATOCRIT 37.3 % (35.0-45.0); HEMOGLOBIN 12.2 g/dl (12.0-16.0); LYMPHOCYTES # (AUTO) 1.5 X10'3 (1.1-4.8); LYMPHOCYTES % (AUTO) 18.8 % (21-51); MEAN CORPUSCULAR HEMOGLOBIN 27.8 PG (27.0-31.0); MEAN CORPUSCULAR HGB CONC 32.5 g/dL (33.0-36.5); MEAN CORPUSCULAR VOLUME 85.5 FL (78-98); MEAN PLATELET VOLUME 7.7 FL (7.4-10.4); MONOCYTES % (AUTO) 12.7 % (2-12); NEUTROPHILS # (AUTO) 5.1 X10'3 (1.8-7.7); NEUTROPHILS % (AUTO) 66.4 % (42-75); PLATELET COUNT 263 X10'3 (140-440); RED BLOOD COUNT 4.37 X10'6 (4.20-5.60); RED CELL DISTRIBUTION WIDTH 18.6 % (11.5-14.5); WHITE BLOOD COUNT 7.7 X10'3 (4.5-11.0)
[2024-03-14 20:15] LABS: URINE HCG NEGATIVE (NEG)
[2024-03-14 20:19] LABS: ALANINE AMINOTRANSFERASE 66 U/L (12-78); ALBUMIN 4.8 G/DL (3.4-5.0); ALKALINE PHOSPHATASE 108 IU/L (46-116); ANION GAP 15 (8-16); ASPARTATE AMINO TRANSFERASE 115 U/L (10-37); BILIRUBIN,TOTAL 1.3 MG/DL (0.1-1.0); BLOOD UREA NITROGEN 16 MG/DL (7-18); CALCIUM 10.6 MG/DL (8.5-10.1); CHLORIDE 90 MMOL/L (99-107); CREATININE 0.84 MG/DL (0.40-0.90); GLUCOSE 123 MG/DL (70-104); LIPASE 72 U/L (16-77); POTASSIUM 3.6 MMOL/L (3.5-5.1); SODIUM 134 MMOL/L (135-145); TOTAL CARBON DIOXIDE 29.1 MMOL/L (24-32); TOTAL PROTEIN 9.7 G/DL (6.4-8.2); eCRCL 88 ML/MIN; eGFR 78 ML/MIN
[2024-03-14 20:23] LABS: BILIRUBIN,URINE MODERATE (Neg); CLARITY,URINE CLOUDY (Clear); COLOR,URINE YELLOW (Yellow); GLUCOSE, URINE 100 mg/dl (Neg); KETONES,URINE 15 mg/dl (Neg); LEUKOCYTE ESTERASE ,URINE TRACE (Neg); NITRITES, URINE NEGATIVE (Neg); OCCULT BLOOD,URINE LARGE (Neg); PROTEIN,URINE 100 mg/dl (Neg)
[2024-03-14 20:37] LABS: UA COLLECTION TYPE CLN CATCH MIDSTREAM
[2024-03-14 20:38] LABS: BACTERIA,URINE 1+ /HPF (Neg); MUCUS STRANDS MODERATE /LPF (Neg); RBC,URINE 50-100 /HPF (0-2); SQUAMOUS EPITHELIAL CELL,UR MODERATE /LPF (FEW); WBC,URINE 0-4 /HPF (0-4)
[2024-03-15] MEDS: ondansetron/PF 4mg/2ml inj IV ONE (00:05)
[2024-03-15] MEDS: morphine 4 MG/ML inj SYRINge IV ONE (00:05)
[2024-03-15] MEDS: normal saline 1000ml 1,000 ML IV ONE (00:11)
[2024-03-15] MEDS ORDERED: iohexol 300mg/ml 100ml inj. ONE (00:24)
[2024-03-15 00:48] LABS: URINE AMPHETAMINE SCREEN NEGATIVE (Neg); URINE BARBITUATE SCREEN NEGATIVE (Neg); URINE BENZODIAZEPINES SCREEN NEGATIVE (Neg); URINE CANNABINOID SCREEN POSITIVE (Neg); URINE COCAINE SCREEN NEGATIVE (Neg); URINE METHADONE SCREEN NEGATIVE (Neg); URINE OPIATE SCREEN NEGATIVE (Neg); URINE PHENCYCLIDINE SCREEN NEGATIVE (Neg)
[2024-03-15] MEDS ORDERED: HYDR-3965 PO (01:50)
[2024-03-15 02:25] VITALS: BP 121/83; PULSE 92; RESP 14; TEMP 98.6; O2SAT 100
== END 2024-03-15 02:26 | disposition home or self-care (01) ==
LOC: ER 18:51
DX: K86.3 Pseudocyst of pancreas (principal); Z88.0 Allergy status to penicillin
CPT/HCPCS: 36415; 74178; 80053; 80305; 81001; 81025; 83690; 84145; 85025; 96361; 96374; 96375; 99285; J2270; J2405; J7030; Q9967

== ENCOUNTER 2024-03-17 10:33 | Emergency (ER) | payer MEDICAID ==
[~2024-03-17] VITALS: Ht 167.6 cm; Wt 63.9 kg
[~2024-03-17 10:33] MED LIST changes: +HYDR-3965 PO
[2024-03-17 11:32] LABS: BASOPHILS % (AUTO) 0.7 % (0-1); EOSINOPHILS # (AUTO) 0.1 X10'3 (0-0.9); EOSINOPHILS % (AUTO) 1.3 % (0-6); HEMATOCRIT 32.1 % (35.0-45.0); HEMOGLOBIN 10.4 g/dl (12.0-16.0); MEAN CORPUSCULAR HEMOGLOBIN 28.2 PG (27.0-31.0); MEAN CORPUSCULAR HGB CONC 32.3 g/dL (33.0-36.5); MEAN CORPUSCULAR VOLUME 87.3 FL (78-98); MEAN PLATELET VOLUME 8.4 FL (7.4-10.4); MONOCYTES # (AUTO) 0.8 X10'3 (0-0.9); MONOCYTES % (AUTO) 15.5 % (2-12); NEUTROPHILS # (AUTO) 3.5 X10'3 (1.8-7.7); NEUTROPHILS % (AUTO) 63.5 % (42-75); PLATELET COUNT 201 X10'3 (140-440); RED BLOOD COUNT 3.68 X10'6 (4.20-5.60); RED CELL DISTRIBUTION WIDTH 18.8 % (11.5-14.5); WHITE BLOOD COUNT 5.5 X10'3 (4.5-11.0)
[2024-03-17 11:52] LABS: ANISOCYTOSIS 2+; PLATELET ESTIMATE NORMAL; TOTAL CELLS COUNTED 100
[2024-03-17 12:02] LABS: ALANINE AMINOTRANSFERASE 72 U/L (12-78); ALBUMIN 3.9 G/DL (3.4-5.0); ALBUMIN/GLOBULIN RATIO 0.9 (1.1-1.5); ALKALINE PHOSPHATASE 106 IU/L (46-116); ANION GAP 11 (8-16); ASPARTATE AMINO TRANSFERASE 95 U/L (10-37); BILIRUBIN,TOTAL 0.6 MG/DL (0.1-1.0); BLOOD UREA NITROGEN 6 MG/DL (7-18); BUN/CREATININE RATIO 11.1 (10.0-20.0); CALCIUM 10.2 MG/DL (8.5-10.1); CHLORIDE 98 MMOL/L (99-107); CREATININE 0.54 MG/DL (0.40-0.90); GLUCOSE 114 MG/DL (70-104); LIPASE 73 U/L (16-77); POTASSIUM 3.5 MMOL/L (3.5-5.1); SODIUM 137 MMOL/L (135-145); TOTAL CARBON DIOXIDE 27.6 MMOL/L (24-32); TOTAL PROTEIN 8.3 G/DL (6.4-8.2); eCRCL 137 ML/MIN; eGFR > 90 ML/MIN
[2024-03-17] MEDS ORDERED: iohexol 300mg/ml 100ml inj. ONE (15:30)
[2024-03-17 15:37] LABS: URINE HCG NEGATIVE (NEG)
[2024-03-17 15:38] LABS: BILIRUBIN,URINE SMALL (Neg); CLARITY,URINE SLIGHTLY CLOUDY (Clear); COLOR,URINE YELLOW (Yellow); GLUCOSE, URINE 100 mg/dl (Neg); KETONES,URINE NEGATIVE (Neg); LEUKOCYTE ESTERASE ,URINE TRACE (Neg); NITRITES, URINE NEGATIVE (Neg); OCCULT BLOOD,URINE LARGE (Neg); PROTEIN,URINE 30 mg/dl (Neg)
[2024-03-17 15:43] LABS: UA COLLECTION TYPE VOIDED
[2024-03-17 15:46] LABS: BACTERIA,URINE 2+ /HPF (Neg); MUCUS STRANDS FEW /LPF (Neg); RENAL CELLS, URINE MODERATE /HPF; SQUAMOUS EPITHELIAL CELL,UR MANY /LPF (FEW); TRANSITIONAL EPI CELLS,URINE MODERATE /HPF
[2024-03-17] MEDS: nitrofuran monohydrate/nitrofuran macrocrysal 100 MG (MacroBID) capsule PO ONE (18:04)
[2024-03-17] MEDS: HYDROcodone/acetaminophen 5mg/325mg tablet PO ONE (18:04)
[2024-03-17] MEDS: HYDROmorphone 1 mg/ml syringe IV ONE (19:12)
[2024-03-17] MEDS: LORazepam 2 mg/ml vial IV ONE (23:25)
[2024-03-17] MEDS: ondansetron/PF 4mg/2ml inj IV PRN (23:36)
[2024-03-17] MEDS: HYDROmorphone 1 mg/ml syringe IV PRN (23:39)
[2024-03-17] MEDS: CefTRIAXone/D5W-Rocephin 1gm 50 ML IV SCH (23:45)
[2024-03-18] MEDS: metroNIDAZOLE-Flagyl 500mg/NS 100 ML IV SCH (00:14)
[2024-03-18] MEDS: LORazepam 2 mg/ml vial IM ONE (04:30)
[2024-03-18] MEDS: HYDROmorphone 1 mg/ml syringe IV ONE (07:17)
[2024-03-18] MEDS: LORazepam 2 mg/ml vial IV ONE ×2 (08:19→15:28)
[2024-03-19 00:20] LABS: BASOPHILS % (AUTO) 1.4 % (0-1); EOSINOPHILS # (AUTO) 0.1 X10'3 (0-0.9); EOSINOPHILS % (AUTO) 2.7 % (0-6); HEMOGLOBIN 8.9 g/dl (12.0-16.0); LYMPHOCYTES # (AUTO) 0.5 X10'3 (1.1-4.8); LYMPHOCYTES % (AUTO) 21.4 % (21-51); MEAN CORPUSCULAR HEMOGLOBIN 27.8 PG (27.0-31.0); MEAN PLATELET VOLUME 7.7 FL (7.4-10.4); MONOCYTES # (AUTO) 0.5 X10'3 (0-0.9); MONOCYTES % (AUTO) 21.1 % (2-12); NEUTROPHILS # (AUTO) 1.3 X10'3 (1.8-7.7); NEUTROPHILS % (AUTO) 53.4 % (42-75); PLATELET COUNT 144 X10'3 (140-440); RED BLOOD COUNT 3.21 X10'6 (4.20-5.60); RED CELL DISTRIBUTION WIDTH 18.5 % (11.5-14.5); WHITE BLOOD COUNT 2.5 X10'3 (4.5-11.0)
[2024-03-19] MEDS: LORazepam 0.5 MG tablet PO ONE (00:28)
[2024-03-19 00:40] LABS: ALANINE AMINOTRANSFERASE 68 U/L (12-78); ALBUMIN 3.1 G/DL (3.4-5.0); ALBUMIN/GLOBULIN RATIO 0.8 (1.1-1.5); ALKALINE PHOSPHATASE 114 IU/L (46-116); ANION GAP 11 (8-16); ASPARTATE AMINO TRANSFERASE 92 U/L (10-37); BILIRUBIN,TOTAL 0.8 MG/DL (0.1-1.0); BLOOD UREA NITROGEN 6 MG/DL (7-18); BUN/CREATININE RATIO 13.3 (10.0-20.0); CALCIUM 8.3 MG/DL (8.5-10.1); CHLORIDE 101 MMOL/L (99-107); CREATININE 0.45 MG/DL (0.40-0.90); GLUCOSE 85 MG/DL (70-104); LIPASE 16 U/L (16-77); POTASSIUM 3.3 MMOL/L (3.5-5.1); SODIUM 138 MMOL/L (135-145); TOTAL CARBON DIOXIDE 25.6 MMOL/L (24-32); TOTAL PROTEIN 6.8 G/DL (6.4-8.2); eCRCL 165 ML/MIN; eGFR > 90 ML/MIN
[2024-03-19] MEDS ORDERED: Potassium Cl inj 20 MEQ in normal saline 1000ml 990 ML IV ONE (01:20)
[2024-03-19] MEDS: potassium Cl 20mEq in NS 1,000 ML IV ONE (01:45)
[2024-03-19] MEDS: LORazepam 2 mg/ml vial IV ONE ×3 (05:35→16:24)
[2024-03-19 15:10] VITALS: O2SAT 97
[2024-03-19 22:43] VITALS: BP 143/106; PULSE 102; RESP 16; TEMP 98.2
== END 2024-03-19 19:15 | disposition short-term general hospital (02) ==
LOC: ER 10:33
DX: K86.89 Other specified diseases of pancreas (principal); N39.0 Urinary tract infection, site not specified; Z88.0 Allergy status to penicillin; Z88.6 Allergy status to analgesic agent
CPT/HCPCS: 36415; 74177; 80053; 81001; 81025; 83605; 83690; 85007; 85025; 96365; 96366; 96367; 96372; 96375; 96376; 99285; J0696; J1171; J2060; J2405; J3480; J3490; Q9967

== ENCOUNTER 2024-03-23 18:00 | Inpatient (IN) | payer MEDICAID ==
[~2024-03-23] VITALS: Ht 167.6 cm; Wt 61.6 kg
[2024-03-24] VITALS (9 sets, daily range): BP systolic 113–151; BP diastolic 81–89; PULSE 70–120; RESP 12–20; TEMP 96.7–98.5; O2SAT 92–99
[2024-03-24] MEDS ORDERED: magnesium Cl slow-release 64mg tablet PO PRN (02:55)
[2024-03-24] MEDS ORDERED: LORazepam 1 MG tablet PO PRN (02:55)
[2024-03-24] MEDS ORDERED: potassium Cl 40MEQ/1/2NS 520ml 520 ML IV PRN (02:55)
[2024-03-24] MEDS ORDERED: mag hydrox/Alum hydrox/simeth 30ml oral suspension PO PRN (02:55)
[2024-03-24] MEDS ORDERED: acetaminophen 325mg tablet PO PRN (02:55)
[2024-03-24] MEDS ORDERED: magnesium sulf-water 2g/50mL 50 ML IV PRN (02:55)
[2024-03-24] MEDS ORDERED: magnesium sulf-water 4G/100mL 100 ML IV PRN (02:55)
[2024-03-24] MEDS ORDERED: HYDROmorphone/PF 0.2 MG/ML SYRINGE IV PRN (02:55)
[2024-03-24] MEDS ORDERED: potassium Cl 20 mEq SR tablet PO PRN ×2 (02:55)
[2024-03-24] MEDS: LORazepam 2 mg/ml vial IV ONE (02:59)
[2024-03-24] MEDS: HYDROmorphone 1 mg/ml syringe IV ONE (03:03)
[2024-03-24] MEDS: HYDROcodone/acetaminophen 5mg/325mg tablet PO PRN (06:12)
[2024-03-24 06:48] LABS: MAGNESIUM 1.7 MG/DL (1.5-2.4); PHOSPHORUS 5.6 MG/DL (2.3-4.5)
[2024-03-24] MEDS: K and/or MAG REPLACEMENT MC SCH (08:00)
[2024-03-24] MEDS: enoxaparin 40mg/0.4ml syringe SUBCUT SCH (08:00)
[2024-03-24] MEDS: carVEDilol 3.125mg tablet PO SCH (09:19)
[2024-03-24] MEDS: CefTRIAXone/D5W-Rocephin 1gm 50 ML IV SCH (09:19)
[2024-03-24] MEDS: HYDROmorphone inj. 0.5 MG/0.5 ML DISP.SYRIN IV PRN (09:21)
[2024-03-24] MEDS: LORazepam 2 mg/ml vial IV SCH (10:35)
[2024-03-24 17:13] LABS: BASOPHILS % (AUTO) 1.3 % (0-1); EOSINOPHILS # (AUTO) 0.1 X10'3 (0-0.9); EOSINOPHILS % (AUTO) 2.7 % (0-6); HEMATOCRIT 32.1 % (35.0-45.0); HEMOGLOBIN 10.5 g/dl (12.0-16.0); LYMPHOCYTES # (AUTO) 0.7 X10'3 (1.1-4.8); LYMPHOCYTES % (AUTO) 24.7 % (21-51); MEAN CORPUSCULAR HEMOGLOBIN 28.1 PG (27.0-31.0); MEAN CORPUSCULAR HGB CONC 32.6 g/dL (33.0-36.5); MEAN CORPUSCULAR VOLUME 86.3 FL (78-98); MEAN PLATELET VOLUME 7.9 FL (7.4-10.4); MONOCYTES # (AUTO) 0.3 X10'3 (0-0.9); MONOCYTES % (AUTO) 11.1 % (2-12); NEUTROPHILS # (AUTO) 1.7 X10'3 (1.8-7.7); NEUTROPHILS % (AUTO) 60.2 % (42-75); PLATELET COUNT 212 X10'3 (140-440); RED BLOOD COUNT 3.72 X10'6 (4.20-5.60); RED CELL DISTRIBUTION WIDTH 18.2 % (11.5-14.5); WHITE BLOOD COUNT 2.8 X10'3 (4.5-11.0)
[2024-03-24 17:22] LABS: ALANINE AMINOTRANSFERASE 64 U/L (12-78); ALBUMIN 3.2 G/DL (3.4-5.0); ALBUMIN/GLOBULIN RATIO 0.8 (1.1-1.5); ALKALINE PHOSPHATASE 105 IU/L (46-116); ANION GAP 9 (8-16); ASPARTATE AMINO TRANSFERASE 147 U/L (10-37); BILIRUBIN,TOTAL 0.5 MG/DL (0.1-1.0); BLOOD UREA NITROGEN 4 MG/DL (7-18); BUN/CREATININE RATIO 8.3 (10.0-20.0); CALCIUM 9.1 MG/DL (8.5-10.1); CHLORIDE 103 MMOL/L (99-107); CREATININE 0.48 MG/DL (0.40-0.90); GLUCOSE 117 MG/DL (70-104); POTASSIUM 4.1 MMOL/L (3.5-5.1); SODIUM 139 MMOL/L (135-145); TOTAL CARBON DIOXIDE 27.2 MMOL/L (24-32); TOTAL PROTEIN 7.3 G/DL (6.4-8.2); eCRCL 155 ML/MIN; eGFR > 90 ML/MIN
[2024-03-24 17:39] LABS: ANISOCYTOSIS 2+; PLATELET ESTIMATE NORMAL; TOTAL CELLS COUNTED 100
[2024-03-25] VITALS (7 sets, daily range): BP systolic 105–139; BP diastolic 57–108; PULSE 78–99; RESP 8–21; TEMP 97.6–97.9; O2SAT 94–99
[2024-03-25 06:31] LABS: BASOPHILS % (AUTO) 1.1 % (0-1); EOSINOPHILS # (AUTO) 0.1 X10'3 (0-0.9); EOSINOPHILS % (AUTO) 2.7 % (0-6); HEMOGLOBIN 9.4 g/dl (12.0-16.0); MEAN CORPUSCULAR HEMOGLOBIN 27.8 PG (27.0-31.0); MEAN CORPUSCULAR HGB CONC 32.3 g/dL (33.0-36.5); MEAN PLATELET VOLUME 8.4 FL (7.4-10.4); MONOCYTES # (AUTO) 0.4 X10'3 (0-0.9); MONOCYTES % (AUTO) 13.8 % (2-12); NEUTROPHILS # (AUTO) 1.6 X10'3 (1.8-7.7); NEUTROPHILS % (AUTO) 51.4 % (42-75); PLATELET COUNT 186 X10'3 (140-440); RED BLOOD COUNT 3.37 X10'6 (4.20-5.60); RED CELL DISTRIBUTION WIDTH 18.2 % (11.5-14.5); WHITE BLOOD COUNT 3.1 X10'3 (4.5-11.0)
[2024-03-25 06:49] LABS: ALANINE AMINOTRANSFERASE 53 U/L (12-78); ALBUMIN 2.8 G/DL (3.4-5.0); ALBUMIN/GLOBULIN RATIO 0.8 (1.1-1.5); ALKALINE PHOSPHATASE 86 IU/L (46-116); ANION GAP 9 (8-16); ASPARTATE AMINO TRANSFERASE 94 U/L (10-37); BILIRUBIN,TOTAL 0.3 MG/DL (0.1-1.0); BLOOD UREA NITROGEN 3 MG/DL (7-18); BUN/CREATININE RATIO 5.8 (10.0-20.0); CHLORIDE 106 MMOL/L (99-107); CREATININE 0.52 MG/DL (0.40-0.90); GLUCOSE 108 MG/DL (70-104); POTASSIUM 3.9 MMOL/L (3.5-5.1); SODIUM 142 MMOL/L (135-145); TOTAL CARBON DIOXIDE 27.2 MMOL/L (24-32); TOTAL PROTEIN 6.3 G/DL (6.4-8.2); eCRCL 143 ML/MIN; eGFR > 90 ML/MIN
[2024-03-25] MEDS: HYDROcodone/acetaminophen 10/325mg tab PO PRN (08:52)
[2024-03-25] MEDS: ondansetron/PF 4mg/2ml inj IV PRN (14:22)
[2024-03-25] MEDS: HYDROmorphone 1 mg/ml syringe IV PRN (15:41)
[2024-03-25] MEDS: lactose-reduced food (Ensure Enlive) - 237ml bottle PO SCH (18:00)
[2024-03-25 18:58] LABS: LIPASE 24 U/L (16-77)
[2024-03-25] MEDS: LORazepam 2 mg/ml vial IV PRN (19:11)
[2024-03-26] VITALS (7 sets, daily range): BP systolic 107–120; BP diastolic 61–83; PULSE 68–100; RESP 12–20; TEMP 97–98.2; O2SAT 96–100
[2024-03-26 05:46] LABS: BASOPHILS % (AUTO) 0.2 % (0-1); EOSINOPHILS # (AUTO) 0.1 X10'3 (0-0.9); EOSINOPHILS % (AUTO) 3.2 % (0-6); HEMATOCRIT 31.2 % (35.0-45.0); LYMPHOCYTES # (AUTO) 1.2 X10'3 (1.1-4.8); LYMPHOCYTES % (AUTO) 27.8 % (21-51); MEAN CORPUSCULAR HEMOGLOBIN 27.5 PG (27.0-31.0); MEAN CORPUSCULAR HGB CONC 32.2 g/dL (33.0-36.5); MEAN CORPUSCULAR VOLUME 85.3 FL (78-98); MONOCYTES # (AUTO) 0.5 X10'3 (0-0.9); MONOCYTES % (AUTO) 11.6 % (2-12); NEUTROPHILS # (AUTO) 2.4 X10'3 (1.8-7.7); NEUTROPHILS % (AUTO) 57.2 % (42-75); PLATELET COUNT 247 X10'3 (140-440); RED BLOOD COUNT 3.66 X10'6 (4.20-5.60); RED CELL DISTRIBUTION WIDTH 17.4 % (11.5-14.5); WHITE BLOOD COUNT 4.2 X10'3 (4.5-11.0)
[2024-03-26 06:03] LABS: ALANINE AMINOTRANSFERASE 46 U/L (12-78); ALBUMIN 3.2 G/DL (3.4-5.0); ALBUMIN/GLOBULIN RATIO 0.8 (1.1-1.5); ALKALINE PHOSPHATASE 100 IU/L (46-116); ANION GAP 7 (8-16); ASPARTATE AMINO TRANSFERASE 81 U/L (10-37); BILIRUBIN,TOTAL 0.5 MG/DL (0.1-1.0); BLOOD UREA NITROGEN 4 MG/DL (7-18); BUN/CREATININE RATIO 7.8 (10.0-20.0); CALCIUM 9.4 MG/DL (8.5-10.1); CHLORIDE 103 MMOL/L (99-107); CREATININE 0.51 MG/DL (0.40-0.90); GLUCOSE 105 MG/DL (70-104); POTASSIUM 4.3 MMOL/L (3.5-5.1); SODIUM 138 MMOL/L (135-145); TOTAL CARBON DIOXIDE 28.1 MMOL/L (24-32); TOTAL PROTEIN 7.3 G/DL (6.4-8.2); eCRCL 146 ML/MIN; eGFR > 90 ML/MIN
[2024-03-26] MEDS: HYDROmorphone 1 mg/ml syringe IV PRN (12:25)
[2024-03-26] MEDS: magnesium hydroxide 30ml (MOM) UD suspension PO PRN (14:36)
[2024-03-27] VITALS (9 sets, daily range): BP systolic 97–122; BP diastolic 54–89; PULSE 78–90; RESP 11–20; TEMP 97–97.7; O2SAT 98–100
[2024-03-27 07:03] LABS: BASOPHILS # (AUTO) 0.1 X10'3 (0-0.2); BASOPHILS % (AUTO) 1.4 % (0-1); EOSINOPHILS # (AUTO) 0.2 X10'3 (0-0.9); EOSINOPHILS % (AUTO) 3.3 % (0-6); HEMOGLOBIN 10.6 g/dl (12.0-16.0); LYMPHOCYTES # (AUTO) 1.3 X10'3 (1.1-4.8); LYMPHOCYTES % (AUTO) 27.5 % (21-51); MEAN CORPUSCULAR HEMOGLOBIN 27.3 PG (27.0-31.0); MEAN CORPUSCULAR HGB CONC 32.1 g/dL (33.0-36.5); MEAN CORPUSCULAR VOLUME 85.1 FL (78-98); MEAN PLATELET VOLUME 8.2 FL (7.4-10.4); MONOCYTES # (AUTO) 0.5 X10'3 (0-0.9); MONOCYTES % (AUTO) 10.2 % (2-12); NEUTROPHILS # (AUTO) 2.8 X10'3 (1.8-7.7); NEUTROPHILS % (AUTO) 57.6 % (42-75); PLATELET COUNT 322 X10'3 (140-440); RED BLOOD COUNT 3.88 X10'6 (4.20-5.60); RED CELL DISTRIBUTION WIDTH 18.2 % (11.5-14.5); WHITE BLOOD COUNT 4.9 X10'3 (4.5-11.0)
[2024-03-27 07:24] LABS: ALANINE AMINOTRANSFERASE 51 U/L (12-78); ALBUMIN 3.3 G/DL (3.4-5.0); ALBUMIN/GLOBULIN RATIO 0.8 (1.1-1.5); ALKALINE PHOSPHATASE 108 IU/L (46-116); ANION GAP 8 (8-16); ASPARTATE AMINO TRANSFERASE 83 U/L (10-37); BILIRUBIN,TOTAL 0.4 MG/DL (0.1-1.0); BLOOD UREA NITROGEN 6 MG/DL (7-18); BUN/CREATININE RATIO 12.8 (10.0-20.0); CALCIUM 9.3 MG/DL (8.5-10.1); CHLORIDE 100 MMOL/L (99-107); CREATININE 0.47 MG/DL (0.40-0.90); GLUCOSE 100 MG/DL (70-104); POTASSIUM 4.1 MMOL/L (3.5-5.1); SODIUM 137 MMOL/L (135-145); TOTAL CARBON DIOXIDE 29.4 MMOL/L (24-32); TOTAL PROTEIN 7.6 G/DL (6.4-8.2); eCRCL 158 ML/MIN; eGFR > 90 ML/MIN
[2024-03-27 13:16] LABS: LIPASE 18 U/L (16-77)
[2024-03-27] MEDS ORDERED: acetaminophen 1,000mg/100ml IV 100 ML IV PRN (14:50)
[2024-03-27] MEDS: HYDROmorphone 1 mg/ml syringe IV PRN (15:32)
[2024-03-27] MEDS ORDERED: naloxone 2mg/2ml inj IV PRN (15:40)
[2024-03-27] MEDS: LORazepam 2 mg/ml vial IV PRN (17:55)
[2024-03-28] VITALS (8 sets, daily range): BP systolic 96–122; BP diastolic 51–88; PULSE 74–80; RESP 16–20; TEMP 97.3–98.2; O2SAT 98–100
[2024-03-28] MEDS: magnesium citrate 296ml oral solution PO ONE (10:36)
[2024-03-28] MEDS: lactulose 20gm/30ml cup PO PRN (10:36)
[2024-03-28 10:49] LABS: BASOPHILS % (AUTO) 1.1 % (0-1); EOSINOPHILS # (AUTO) 0.1 X10'3 (0-0.9); HEMATOCRIT 33.6 % (35.0-45.0); HEMOGLOBIN 10.7 g/dl (12.0-16.0); LYMPHOCYTES % (AUTO) 23.2 % (21-51); MEAN CORPUSCULAR HEMOGLOBIN 27.3 PG (27.0-31.0); MEAN CORPUSCULAR HGB CONC 31.9 g/dL (33.0-36.5); MEAN CORPUSCULAR VOLUME 85.7 FL (78-98); MEAN PLATELET VOLUME 8.2 FL (7.4-10.4); MONOCYTES # (AUTO) 0.4 X10'3 (0-0.9); MONOCYTES % (AUTO) 9.9 % (2-12); NEUTROPHILS # (AUTO) 2.7 X10'3 (1.8-7.7); NEUTROPHILS % (AUTO) 62.8 % (42-75); PLATELET COUNT 264 X10'3 (140-440); RED BLOOD COUNT 3.92 X10'6 (4.20-5.60); RED CELL DISTRIBUTION WIDTH 17.9 % (11.5-14.5); WHITE BLOOD COUNT 4.2 X10'3 (4.5-11.0)
[2024-03-28 11:01] LABS: ALANINE AMINOTRANSFERASE 47 U/L (12-78); ALBUMIN 3.4 G/DL (3.4-5.0); ALBUMIN/GLOBULIN RATIO 0.7 (1.1-1.5); ALKALINE PHOSPHATASE 112 IU/L (46-116); ANION GAP 8 (8-16); ASPARTATE AMINO TRANSFERASE 64 U/L (10-37); BILIRUBIN,TOTAL 0.3 MG/DL (0.1-1.0); BLOOD UREA NITROGEN 9 MG/DL (7-18); CALCIUM 9.5 MG/DL (8.5-10.1); CHLORIDE 102 MMOL/L (99-107); CREATININE 0.41 MG/DL (0.40-0.90); GLUCOSE 106 MG/DL (70-104); POTASSIUM 4.2 MMOL/L (3.5-5.1); SODIUM 139 MMOL/L (135-145); TOTAL CARBON DIOXIDE 29.4 MMOL/L (24-32); TOTAL PROTEIN 8.3 G/DL (6.4-8.2); eCRCL 181 ML/MIN; eGFR > 90 ML/MIN
[2024-03-28] MEDS: polyethylene glycol 3350 17gm powd pack PO PRN (12:58)
[2024-03-28] MEDS: bisacodyl 10mg suppository rectal RC PRN (15:18)
[2024-03-28] MEDS: ringers solution, lacted 1,000 ML IV ONE (15:46)
[2024-03-28] MEDS: mineral oil 133ml enema RC PRN (15:46)
[2024-03-28] MEDS: docusate sod 100mg capsule PO SCH (21:16)
[2024-03-28] MEDS: LORazepam 1 MG tablet PO PRN (21:16)
[2024-03-29] VITALS (9 sets, daily range): BP systolic 94–122; BP diastolic 58–92; PULSE 61–110; RESP 15–21; TEMP 97.3–98; O2SAT 94–100
[2024-03-29 05:26] LABS: BASOPHILS % (AUTO) 1.1 % (0-1); EOSINOPHILS # (AUTO) 0.1 X10'3 (0-0.9); EOSINOPHILS % (AUTO) 2.8 % (0-6); HEMATOCRIT 32.6 % (35.0-45.0); HEMOGLOBIN 10.4 g/dl (12.0-16.0); LYMPHOCYTES # (AUTO) 1.2 X10'3 (1.1-4.8); LYMPHOCYTES % (AUTO) 27.8 % (21-51); MEAN CORPUSCULAR HEMOGLOBIN 27.1 PG (27.0-31.0); MEAN CORPUSCULAR HGB CONC 31.8 g/dL (33.0-36.5); MEAN CORPUSCULAR VOLUME 85.2 FL (78-98); MEAN PLATELET VOLUME 8.3 FL (7.4-10.4); MONOCYTES # (AUTO) 0.5 X10'3 (0-0.9); MONOCYTES % (AUTO) 11.6 % (2-12); NEUTROPHILS # (AUTO) 2.4 X10'3 (1.8-7.7); NEUTROPHILS % (AUTO) 56.7 % (42-75); PLATELET COUNT 266 X10'3 (140-440); RED BLOOD COUNT 3.83 X10'6 (4.20-5.60); RED CELL DISTRIBUTION WIDTH 17.3 % (11.5-14.5); WHITE BLOOD COUNT 4.2 X10'3 (4.5-11.0)
[2024-03-29 05:45] LABS: ALANINE AMINOTRANSFERASE 46 U/L (12-78); ALBUMIN 3.2 G/DL (3.4-5.0); ALBUMIN/GLOBULIN RATIO 0.7 (1.1-1.5); ALKALINE PHOSPHATASE 108 IU/L (46-116); ANION GAP 6 (8-16); ASPARTATE AMINO TRANSFERASE 75 U/L (10-37); BILIRUBIN,TOTAL 0.4 MG/DL (0.1-1.0); BLOOD UREA NITROGEN 6 MG/DL (7-18); BUN/CREATININE RATIO 15.8 (10.0-20.0); CALCIUM 9.5 MG/DL (8.5-10.1); CHLORIDE 103 MMOL/L (99-107); CREATININE 0.38 MG/DL (0.40-0.90); GLUCOSE 95 MG/DL (70-104); POTASSIUM 4.4 MMOL/L (3.5-5.1); SODIUM 138 MMOL/L (135-145); TOTAL CARBON DIOXIDE 29.1 MMOL/L (24-32); TOTAL PROTEIN 7.8 G/DL (6.4-8.2); eCRCL 195 ML/MIN; eGFR > 90 ML/MIN
[2024-03-29] MEDS: ringers solution, lacted 1,000 ML IV SCH (16:54)
[2024-03-30 04:58] LABS: BASOPHILS % (AUTO) 1.1 % (0-1); EOSINOPHILS # (AUTO) 0.1 X10'3 (0-0.9); EOSINOPHILS % (AUTO) 3.2 % (0-6); HEMATOCRIT 28.2 % (35.0-45.0); HEMOGLOBIN 9.1 g/dl (12.0-16.0); LYMPHOCYTES % (AUTO) 28.8 % (21-51); MEAN CORPUSCULAR HEMOGLOBIN 27.4 PG (27.0-31.0); MEAN CORPUSCULAR HGB CONC 32.2 g/dL (33.0-36.5); MEAN PLATELET VOLUME 7.9 FL (7.4-10.4); MONOCYTES # (AUTO) 0.5 X10'3 (0-0.9); MONOCYTES % (AUTO) 14.1 % (2-12); NEUTROPHILS # (AUTO) 1.9 X10'3 (1.8-7.7); NEUTROPHILS % (AUTO) 52.8 % (42-75); PLATELET COUNT 215 X10'3 (140-440); RED BLOOD COUNT 3.32 X10'6 (4.20-5.60); RED CELL DISTRIBUTION WIDTH 17.7 % (11.5-14.5); WHITE BLOOD COUNT 3.5 X10'3 (4.5-11.0)
[2024-03-30 05:15] LABS: ALANINE AMINOTRANSFERASE 35 U/L (12-78); ALBUMIN 2.7 G/DL (3.4-5.0); ALBUMIN/GLOBULIN RATIO 0.7 (1.1-1.5); ALKALINE PHOSPHATASE 90 IU/L (46-116); ANION GAP 8 (8-16); ASPARTATE AMINO TRANSFERASE 60 U/L (10-37); BILIRUBIN,TOTAL 0.3 MG/DL (0.1-1.0); BLOOD UREA NITROGEN 7 MG/DL (7-18); BUN/CREATININE RATIO 12.3 (10.0-20.0); CALCIUM 8.9 MG/DL (8.5-10.1); CHLORIDE 102 MMOL/L (99-107); CREATININE 0.57 MG/DL (0.40-0.90); GLUCOSE 128 MG/DL (70-104); POTASSIUM 4.2 MMOL/L (3.5-5.1); SODIUM 138 MMOL/L (135-145); TOTAL CARBON DIOXIDE 28.3 MMOL/L (24-32); TOTAL PROTEIN 6.5 G/DL (6.4-8.2); eCRCL 130 ML/MIN; eGFR > 90 ML/MIN
[2024-03-30 06:00] VITALS: BP 119/87; PULSE 52; RESP 14; TEMP 98.2; O2SAT 98
[2024-03-30 11:00] VITALS: BP 118/86; PULSE 74; RESP 18; TEMP 97.9; O2SAT 96
[2024-03-30 18:30] VITALS: BP 133/102; PULSE 96; RESP 17; TEMP 98.7; O2SAT 98
[2024-03-30 20:00] VITALS: RESP 17; O2SAT 98
[2024-03-30 22:00] VITALS: BP 145/82; PULSE 66; RESP 20; TEMP 98.5; O2SAT 96
[2024-03-31 05:25] LABS: EOSINOPHILS # (AUTO) 0.1 X10'3 (0-0.9); HEMOGLOBIN 9.6 g/dl (12.0-16.0); LYMPHOCYTES # (AUTO) 1.2 X10'3 (1.1-4.8); MEAN PLATELET VOLUME 9.2 FL (7.4-10.4); MONOCYTES # (AUTO) 0.5 X10'3 (0-0.9)
[2024-03-31 05:28] LABS: BASOPHILS % (AUTO) 0.8 % (0-1); EOSINOPHILS % (AUTO) 3.3 % (0-6); HEMATOCRIT 29.3 % (35.0-45.0); LYMPHOCYTES % (AUTO) 30.5 % (21-51); MEAN CORPUSCULAR HEMOGLOBIN 28.4 PG (27.0-31.0); MEAN CORPUSCULAR HGB CONC 32.9 g/dL (33.0-36.5); MEAN CORPUSCULAR VOLUME 86.4 FL (78-98); MONOCYTES % (AUTO) 11.8 % (2-12); NEUTROPHILS # (AUTO) 2.1 X10'3 (1.8-7.7); NEUTROPHILS % (AUTO) 53.6 % (42-75); PLATELET COUNT 184 X10'3 (140-440); RED BLOOD COUNT 3.39 X10'6 (4.20-5.60); RED CELL DISTRIBUTION WIDTH 17.8 % (11.5-14.5); WHITE BLOOD COUNT 3.9 X10'3 (4.5-11.0)
[2024-03-31 05:44] LABS: ALANINE AMINOTRANSFERASE 32 U/L (12-78); ALBUMIN 2.7 G/DL (3.4-5.0); ALBUMIN/GLOBULIN RATIO 0.7 (1.1-1.5); ALKALINE PHOSPHATASE 92 IU/L (46-116); ANION GAP 7 (8-16); ASPARTATE AMINO TRANSFERASE 63 U/L (10-37); BILIRUBIN,TOTAL 0.4 MG/DL (0.1-1.0); BLOOD UREA NITROGEN 7 MG/DL (7-18); BUN/CREATININE RATIO 14.6 (10.0-20.0); CALCIUM 8.4 MG/DL (8.5-10.1); CHLORIDE 105 MMOL/L (99-107); CREATININE 0.48 MG/DL (0.40-0.90); GLUCOSE 145 MG/DL (70-104); SODIUM 137 MMOL/L (135-145); TOTAL CARBON DIOXIDE 24.9 MMOL/L (24-32); TOTAL PROTEIN 6.5 G/DL (6.4-8.2); eCRCL 155 ML/MIN; eGFR > 90 ML/MIN
[2024-03-31 06:00] VITALS: BP 104/85; PULSE 67; RESP 20; TEMP 98.6; O2SAT 98
[2024-03-31 10:00] VITALS: BP 115/89; PULSE 70; RESP 17; TEMP 97.6; O2SAT 100
[2024-03-31 13:05] VITALS: RESP 17; O2SAT 98
[2024-03-31 18:00] VITALS: BP 134/91; PULSE 83; RESP 16; TEMP 97.5; O2SAT 95
[2024-03-31 20:00] VITALS: RESP 16; O2SAT 95
[2024-03-31 22:00] VITALS: BP 116/73; PULSE 92; RESP 18; TEMP 97.8; O2SAT 92
[2024-04-01 05:14] LABS: BASOPHILS % (AUTO) 1.3 % (0-1); EOSINOPHILS # (AUTO) 0.1 X10'3 (0-0.9); EOSINOPHILS % (AUTO) 3.1 % (0-6); HEMATOCRIT 30.2 % (35.0-45.0); HEMOGLOBIN 9.7 g/dl (12.0-16.0); LYMPHOCYTES # (AUTO) 0.8 X10'3 (1.1-4.8); LYMPHOCYTES % (AUTO) 26.1 % (21-51); MEAN CORPUSCULAR HEMOGLOBIN 27.3 PG (27.0-31.0); MEAN CORPUSCULAR HGB CONC 32.2 g/dL (33.0-36.5); MEAN CORPUSCULAR VOLUME 84.8 FL (78-98); MEAN PLATELET VOLUME 8.3 FL (7.4-10.4); MONOCYTES # (AUTO) 0.4 X10'3 (0-0.9); MONOCYTES % (AUTO) 11.4 % (2-12); NEUTROPHILS # (AUTO) 1.8 X10'3 (1.8-7.7); NEUTROPHILS % (AUTO) 58.1 % (42-75); PLATELET COUNT 231 X10'3 (140-440); RED BLOOD COUNT 3.57 X10'6 (4.20-5.60); WHITE BLOOD COUNT 3.2 X10'3 (4.5-11.0)
[2024-04-01 05:41] LABS: ALANINE AMINOTRANSFERASE 49 U/L (12-78); ALBUMIN/GLOBULIN RATIO 0.7 (1.1-1.5); ALKALINE PHOSPHATASE 109 IU/L (46-116); ANION GAP 7 (8-16); ASPARTATE AMINO TRANSFERASE 87 U/L (10-37); BILIRUBIN,TOTAL 0.3 MG/DL (0.1-1.0); BLOOD UREA NITROGEN 6 MG/DL (7-18); BUN/CREATININE RATIO 14.6 (10.0-20.0); CALCIUM 8.9 MG/DL (8.5-10.1); CHLORIDE 104 MMOL/L (99-107); CREATININE 0.41 MG/DL (0.40-0.90); GLUCOSE 93 MG/DL (70-104); SODIUM 139 MMOL/L (135-145); TOTAL CARBON DIOXIDE 27.8 MMOL/L (24-32); TOTAL PROTEIN 7.4 G/DL (6.4-8.2); eCRCL 181 ML/MIN; eGFR > 90 ML/MIN
[2024-04-01 06:00] VITALS: BP 129/95; PULSE 106; RESP 17; TEMP 98.1; O2SAT 98
[2024-04-01] MEDS: CefTRIAXone 2gm/D5W 50ml BAG 50 ML IV SCH (08:18)
[2024-04-01 08:31] VITALS: RESP 16; O2SAT 95
[2024-04-01 08:42] LABS: C-REACTIVE PROTEIN 0.07 MG/DL (0.0-0.5)
[2024-04-01 10:00] VITALS: BP 117/73; PULSE 64; RESP 16; TEMP 97.8; O2SAT 99
[2024-04-01 18:00] VITALS: BP 122/91; PULSE 73; RESP 16; TEMP 97.8; O2SAT 100
[2024-04-01 20:00] VITALS: RESP 16; O2SAT 100
[2024-04-01 22:00] VITALS: BP 142/98; PULSE 83; RESP 18; TEMP 98.6; O2SAT 98
[2024-04-02 06:00] VITALS: BP 125/80; PULSE 77; RESP 16; TEMP 97.9; O2SAT 97
[2024-04-02 06:13] LABS: BASOPHILS # (AUTO) 0.1 X10'3 (0-0.2); BASOPHILS % (AUTO) 1.2 % (0-1); EOSINOPHILS # (AUTO) 0.2 X10'3 (0-0.9); EOSINOPHILS % (AUTO) 3.7 % (0-6); HEMATOCRIT 31.6 % (35.0-45.0); HEMOGLOBIN 10.2 g/dl (12.0-16.0); LYMPHOCYTES # (AUTO) 1.1 X10'3 (1.1-4.8); LYMPHOCYTES % (AUTO) 26.2 % (21-51); MEAN CORPUSCULAR HEMOGLOBIN 27.4 PG (27.0-31.0); MEAN CORPUSCULAR HGB CONC 32.3 g/dL (33.0-36.5); MEAN CORPUSCULAR VOLUME 84.8 FL (78-98); MEAN PLATELET VOLUME 8.3 FL (7.4-10.4); MONOCYTES # (AUTO) 0.5 X10'3 (0-0.9); MONOCYTES % (AUTO) 11.6 % (2-12); NEUTROPHILS # (AUTO) 2.5 X10'3 (1.8-7.7); NEUTROPHILS % (AUTO) 57.3 % (42-75); PLATELET COUNT 241 X10'3 (140-440); RED BLOOD COUNT 3.73 X10'6 (4.20-5.60); RED CELL DISTRIBUTION WIDTH 17.8 % (11.5-14.5); WHITE BLOOD COUNT 4.3 X10'3 (4.5-11.0)
[2024-04-02 06:42] LABS: ALANINE AMINOTRANSFERASE 47 U/L (12-78); ALBUMIN/GLOBULIN RATIO 0.7 (1.1-1.5); ALKALINE PHOSPHATASE 102 IU/L (46-116); ANION GAP 7 (8-16); ASPARTATE AMINO TRANSFERASE 78 U/L (10-37); BILIRUBIN,TOTAL 0.3 MG/DL (0.1-1.0); BLOOD UREA NITROGEN 5 MG/DL (7-18); BUN/CREATININE RATIO 18.5 (10.0-20.0); C-REACTIVE PROTEIN 0.11 MG/DL (0.0-0.5); CALCIUM 9.2 MG/DL (8.5-10.1); CHLORIDE 105 MMOL/L (99-107); CREATININE 0.27 MG/DL (0.40-0.90); GLUCOSE 95 MG/DL (70-104); POTASSIUM 3.9 MMOL/L (3.5-5.1); SODIUM 140 MMOL/L (135-145); TOTAL CARBON DIOXIDE 27.6 MMOL/L (24-32); TOTAL PROTEIN 7.3 G/DL (6.4-8.2); eCRCL 275 ML/MIN; eGFR > 90 ML/MIN
[2024-04-02 08:20] VITALS: RESP 16; O2SAT 97
[2024-04-02] MEDS ORDERED: CIPR-202 PO (10:00)
[2024-04-02] MEDS ORDERED: METR-159 PO (10:00)
[2024-04-02] MEDS ORDERED: HYDR-3972 PO (10:00)
[2024-04-02] MEDS: morphine 2 MG/ML inj. syringe IV PRN (10:15)
[2024-04-02] MEDS ORDERED: LORA-269 PO (10:34)
[2024-04-02 11:07] VITALS: RESP 16
== END 2024-04-02 11:54 | disposition home or self-care (01) | DRG 251 ==
LOC: UNDOADMIN 18:00 → PCU 3S 18:00 → SUR 3N 03-29 00:13
PROVIDERS: ADMIT Family Medicine; ATTEND Family Medicine
DX: R10.13 Epigastric pain (principal); R16.0 Hepatomegaly, not elsewhere classified; B19.20 Unspecified viral hepatitis C without hepatic coma; D64.9 Anemia, unspecified; F41.9 Anxiety disorder, unspecified; I10 Essential (primary) hypertension; D72.819 Decreased white blood cell count, unspecified; F15.90 Other stimulant use, unspecified, uncomplicated; F10.90 Alcohol use, unspecified, uncomplicated; Y90.9 Presence of alcohol in blood, level not specified; Z88.0 Allergy status to penicillin; Z79.899 Other long term (current) drug therapy; Z88.8 Allergy status to other drugs, medicaments and biological substances
CPT/HCPCS: 36415; 74176; 80053; 83690; 83735; 84100; 85007; 85025; 86140; 87081; A6258; G0378; J0696; J1171; J1650; J2060; J2270; J2405; J7030; J7040; J7120